=== PATIENT | male | born 1965 | race Caucasian/White ===

== ENCOUNTER 2020-03-20 11:20 | Outpatient (REF) | payer BC, OTHER, SELFPAY | END 2020-03-20 11:21 | disposition home or self-care (01) | LOC: HO.LNP 11:20 | PROVIDERS: Visit Provider Nurse Practitioner Family | DX: L02.91 Cutaneous abscess, unspecified (principal) | CPT/HCPCS: 87071; 87205 ==

== ENCOUNTER 2020-05-01 11:14 | Outpatient (REF) | payer BC, SELFPAY | END 2020-05-01 11:15 | disposition home or self-care (01) | LOC: HO.LAB 11:14 | PROVIDERS: Visit Provider Nurse Practitioner Family | DX: Z20.828 Contact with and (suspected) exposure to other viral communicable diseases (principal); R06.02 Shortness of breath | CPT/HCPCS: U0003 ==

== ENCOUNTER 2020-05-01 11:15 | Outpatient (REF) | payer BC, SELFPAY ==
--- NOTE | 2020-05-01 11:28 | XR_ITS ---
EXAMINATION: XR CHEST CLINICAL INFORMATION: Shortness of breath COMPARISON: Chest radiographs 09/21/2019 TECHNIQUE: 2 views of the chest were obtained. FINDINGS: The lungs are clear. There is no airspace consolidation or effusion. The vascularity is normal. The heart is normal in size. The hilar and mediastinal contours and bony structures are stable. XR/XR chest 2V IMPRESSION: Unremarkable examination.
== END 2020-05-01 11:16 | disposition home or self-care (01) ==
LOC: HO.HMGCX 11:15
PROVIDERS: PCP Nurse Practitioner Family; Visit Provider Nurse Practitioner Family
DX: R06.02 Shortness of breath (principal)
CPT/HCPCS: 71046; U0003

== ENCOUNTER 2020-05-22 09:04 | Outpatient (REF) | payer BC, SELFPAY ==
[2020-05-22 11:58] LABS: TSH reflex Free T4 1.79 mIU/mL (0.32-4.0)
[2020-05-22 12:01] LABS: Alanine Aminotransferase 53 U/L (0-40); Albumin Level 4.3 g/dL (3.5-5.0); Alkaline Phosphatase 98 U/L (39-117); Anion Gap 13 (12-20); Aspartate Amino Transferase 30 U/L (5-37); Bilirubin Total 1.9 mg/dL (0.0-1.0); Blood Urea Nitrogen 16 mg/dL (9-16); Carbon Dioxide 28 mmol/L (22-29); Chloride 103 mmol/L (96-108); Cholesterol 216 mg/dL; Estimated Glomerular Filt Rate > 60; Glucose Fasting 103 mg/dL (60-99); HDL Cholesterol 44 mg/dL; LDL Cholesterol Calculated 132 mg/dl; Sodium 140 mmol/L (135-145); Total Protein 6.9 g/dL (6.5-8.0); Triglycerides 202 mg/dL
[2020-05-22 12:29] LABS: Prostate Specific Antigen Scr 1.26 ng/mL (<0.05-4.0)
[2020-05-27 07:58] LABS: Testosterone, Total 301 ng/dL (250-1100)
== END 2020-05-22 09:05 | disposition home or self-care (01) ==
LOC: HO.HMGCLDS 09:04
PROVIDERS: PCP Nurse Practitioner Family; Visit Provider Nurse Practitioner Family
DX: Z00.00 Encounter for general adult medical examination without abnormal findings (principal); R68.82 Decreased libido; N52.9 Male erectile dysfunction, unspecified; Z12.5 Encounter for screening for malignant neoplasm of prostate
CPT/HCPCS: 80053; 80061; 84153; 84403; 84443

== ENCOUNTER 2021-09-27 09:40 | Outpatient (REF) | payer BC, SELFPAY ==
--- NOTE | ~2021-09-27 | XR_ITS ---
EXAMINATION: XR KNEE, LEFT CLINICAL INFORMATION: Left knee pain status post fall. COMPARISON: None TECHNIQUE: Four views of the left knee. FINDINGS: No significant tricompartmental degenerative joint changes are seen. There is no acute fracture or dislocation. No significant joint effusion. Mild prepatellar soft tissue swelling is seen. XR/XR knee LT 4V IMPRESSION: Mild prepatellar soft tissue swelling without acute underlying osseous abnormality. Correlate with physical exam.
== END 2021-09-27 09:41 | disposition home or self-care (01) ==
LOC: HO.HMGCX 09:40
PROVIDERS: PCP Nurse Practitioner Family; Visit Provider Physician Assistant
DX: M25.562 Pain in left knee (principal)
CPT/HCPCS: 73564

== ENCOUNTER 2022-05-05 15:26 | Outpatient (REF) | payer BC, SELFPAY ==
[2022-05-05 15:49] LABS: MANUAL DIFF FLAG NO
[2022-05-05 16:39] LABS: Basophils Percent Auto 0.6 % (0-2); Eosinophils Absolute Auto 0.3 X10*3/uL (0.0-0.4); Eosinophils Percent Auto 4.8 % (0-4); Hematocrit 45.3 % (42.0-52.0); Hemoglobin 15.3 g/dl (14.0-18.0); Imm Gran Abs Auto 0.03 X10*3/uL (0.00-0.03); Imm Gran Pct Auto 0.5 % (0.0-0.4); Lymphocytes Absolute Auto 1.3 X10*3/uL (1.2-4.9); Lymphocytes Percent Auto 19.7 % (20-40); Mean Corpuscular HGB Conc 33.8 g/dl (31.0-36.0); Mean Corpuscular Hemoglobin 29.9 pg (27.0-33.0); Mean Corpuscular Volume 88.6 fL (80.0-98.0); Monocytes Absolute Auto 0.6 X10*3/uL (0.1-1.2); Monocytes Percent Auto 8.9 % (2-11); Neutrophils Absolute Auto 4.4 x10*3/uL (2.0-8.3); Neutrophils Percent Auto 65.5 % (45-73); Platelet Count 171 X10*3/uL (160-400); Red Blood Count 5.11 X10*6/uL (4.60-5.80); Red Cell Distribution Width 12.5 % (11.0-16.0); White Blood Count 6.7 X10*3/uL (4.8-10.8)
[2022-05-05 19:26] LABS: Alanine Aminotransferase 31 U/L (0-40); Albumin Level 4.3 g/dL (3.5-5.0); Alkaline Phosphatase 91 U/L (39-117); Anion Gap 12 (12-20); Aspartate Amino Transferase 21 U/L (5-37); Bilirubin Total 1.4 mg/dL (0.0-1.0); Blood Urea Nitrogen 15 mg/dL (9-16); Calcium 9.6 mg/dL (8.4-10.2); Carbon Dioxide 29 mmol/L (22-29); Chloride 105 mmol/L (96-108); Estimated Glomerular Filt Rate > 60; Glucose Random 107 mg/dL (60-115); Potassium 4.4 mmol/L (3.3-5.1); Sodium 142 mmol/L (135-145); Total Protein 6.8 g/dL (6.5-8.0)
== END 2022-05-05 15:27 | disposition home or self-care (01) ==
LOC: HO.LAB 15:26
PROVIDERS: PCP Nurse Practitioner Family; Visit Provider Nurse Practitioner
DX: Z01.818 Encounter for other preprocedural examination (principal)
CPT/HCPCS: 36415; 80053; 85025

== ENCOUNTER 2022-05-15 08:13 | Outpatient (REF) | payer BC, SELFPAY | END 2022-05-15 08:14 | disposition home or self-care (01) | LOC: HO.SH 08:13 | PROVIDERS: Visit Provider Nurse Practitioner Family | DX: H90.3 Sensorineural hearing loss, bilateral (principal) | CPT/HCPCS: 92557; 92567 ==

== ENCOUNTER 2022-06-03 08:07 | Outpatient (REF) | payer BC, SELFPAY ==
[2022-06-03 11:11] LABS: MANUAL DIFF FLAG NO
[2022-06-03 11:17] LABS: Appearance Urine Cloudy; Color Urine Yellow; Glucose Urine UA Negative (Negative); Leukocyte Esterase Urine Negative (Negative); Nitrite Urine Negative (Negative); PH 5.5 (5.0-9.0); Urine Blood Negative (Negative); Urine Ketones Negative (Negative); Urine Protein Trace mg/dL (Neg-Trace)
[2022-06-03 11:27] LABS: Basophils Percent Auto 0.6 % (0-2); Eosinophils Absolute Auto 0.4 X10*3/uL (0.0-0.4); Eosinophils Percent Auto 7.2 % (0-4); Hematocrit 46.8 % (42.0-52.0); Hemoglobin 15.7 g/dl (14.0-18.0); Imm Gran Abs Auto 0.05 X10*3/uL (0.00-0.03); Lymphocytes Absolute Auto 1.1 X10*3/uL (1.2-4.9); Lymphocytes Percent Auto 22.2 % (20-40); Mean Corpuscular HGB Conc 33.5 g/dl (31.0-36.0); Mean Corpuscular Hemoglobin 29.6 pg (27.0-33.0); Mean Corpuscular Volume 88.3 fL (80.0-98.0); Mean Platelet Volume 9.8 fL (9.4-12.4); Monocytes Absolute Auto 0.5 X10*3/uL (0.1-1.2); Monocytes Percent Auto 9.7 % (2-11); Neutrophils Absolute Auto 2.9 x10*3/uL (2.0-8.3); Neutrophils Percent Auto 59.3 % (45-73); Platelet Count 175 X10*3/uL (160-400); Red Cell Distribution Width 12.6 % (11.0-16.0); White Blood Count 4.9 X10*3/uL (4.8-10.8)
[2022-06-03 11:58] LABS: Alanine Aminotransferase 32 U/L (0-40); Albumin Level 4.2 g/dL (3.5-5.0); Alkaline Phosphatase 89 U/L (39-117); Anion Gap 10 (12-20); Aspartate Amino Transferase 19 U/L (5-37); Bilirubin Total 1.4 mg/dL (0.0-1.0); Blood Urea Nitrogen 20 mg/dL (9-16); Calcium 9.8 mg/dL (8.4-10.2); Carbon Dioxide 29 mmol/L (22-29); Chloride 106 mmol/L (96-108); Cholesterol 196 mg/dL; Estimated Glomerular Filt Rate > 60; Glucose Fasting 106 mg/dL (60-99); HDL Cholesterol 36 mg/dL; LDL Cholesterol Calculated 110 mg/dl; Potassium 4.6 mmol/L (3.3-5.1); Sodium 140 mmol/L (135-145); Total Protein 6.7 g/dL (6.5-8.0); Triglycerides 251 mg/dL
== END 2022-06-03 08:08 | disposition home or self-care (01) ==
LOC: HO.HMGCLDS 08:07
PROVIDERS: PCP Nurse Practitioner Family; Visit Provider Nurse Practitioner Family
DX: Z00.00 Encounter for general adult medical examination without abnormal findings (principal); Z12.5 Encounter for screening for malignant neoplasm of prostate
CPT/HCPCS: 36415; 80053; 80061; 81003; 84153; 84443; 85025

== ENCOUNTER 2022-07-15 09:16 | Outpatient (REF) | payer BC, SELFPAY ==
--- NOTE | ~2022-07-15 | XR_ITS ---
EXAMINATION: XR CHEST CLINICAL INFORMATION: Bronchitis COMPARISON: 05/01/2020 TECHNIQUE: 2 views of the chest were obtained. FINDINGS: No significant abnormality is noted involving the heart, lungs, mediastinum, bony thorax or soft tissues. XR/XR chest 2V IMPRESSION: Unremarkable examination.
== END 2022-07-15 09:17 | disposition home or self-care (01) ==
LOC: HO.HMGCX 09:16
PROVIDERS: Visit Provider Internal Medicine
DX: J40 Bronchitis, not specified as acute or chronic (principal)
CPT/HCPCS: 71046

== ENCOUNTER 2023-01-01 11:06 | Day surgery (SDC) | payer BC, SELFPAY ==
[2022-12-30 07:59] VITALS: BMI 31.4
--- NOTE | 2023-01-01 11:13 | HO.ANESPROP2 ---
[facility] Active Problems Active Problems: All Active Problems (Updated 07/30/22 @ 09:18 by Dia Preciado MD) Exacerbation of asthma (Acute) Bronchitis (Acute) Sarcoidosis (Acute) High triglycerides (Acute) Sensorineural hearing loss, asymmetrical (Acute) Family history of colon cancer (Acute) Tubular adenoma of colon (Acute) VALENTINE (obstructive sleep apnea) (Acute) Pre-op examination (Acute) History of diverticulitis (Acute) Ocular migraine (Acute) Screening for colon cancer (Acute) Black tarry stools (Acute) Back pain (Acute) Elevated liver enzymes (Acute) Dyslipidemia (Acute) HTN (hypertension) (Acute) Loss of libido (Acute) Erectile dysfunction (Acute) Hearing loss (Acute) Screening PSA (prostate specific antigen) (Acute) Physical exam (Acute) Shortness of breath (Acute) Blister (Acute) Past Medical History Medical History Diverticulitis GERD (gastroesophageal reflux disease) Gilbert's syndrome Hearing loss VALENTINE (obstructive sleep apnea) Sarcoidosis Villous adenoma of rectum Family History Family History Father Colon cancer Family history of problems with anesthesia: No Surgical History Surgical History H/O colonoscopy History of colon resection S/P tendon repair History of Problems with Anesthesia: No Social History Social History Housing: House Are you a primary childcare teacher to a significant other at home: No Do you presently have visiting nurse or other home services: No Alcohol intake: current Alcohol intake frequency: a few times a month Patient Tobacco Use Status: Never used Tobacco e-Cigarette/Vaping Use: Never Used Second Hand Smoke Exposure: No Use of substances other than those prescribed or required for medical reasons: No Advance Directives: No Advance Directives Information Provided: Yes Recently lost weight without trying: No Eating poorly because of decreased appetite: No Nutrition Risks: No Nutritional Risk Poor oral hygiene: No service: No Current occupational status: employed Current occupation: [employer] Current occupational exposures/hazards: Yes Cognitive needs: No Hearing needs: No Vision needs: No Meds Allergies Allergy/AdvReac Type Severity Reaction Status Date / Time morphine Allergy Unknown stomach Verified 01/01/23 11:15 pain and cramping penicillin V Allergy Unknown hives Verified 01/01/23 11:15 Penicillins Allergy Unknown UNKNOWN-REACTION Verified 01/01/23 11:15 A CHILD hydromorphone [Dilaudid] AdvReac Unknown migranies Verified 01/01/23 11:15 Active Medications: Current Medications Albuterol Sulfate (Albuterol Sulfate (0.083%) 2.5 Mg/3 Ml Vial.Neb) 2.5 mg INHALE ONCE PRN PRN Reason: Shortness of Breath/Wheezing Lactated Ringer's (Lr) 1,000 mls @ 100 mls/hr IVCONT .Q10H CINDY Exam Exam Date and Time: January 01, 2023 1113 Height,Weight and Vital Signs: Height 6 ft 5 in Weight 120.202 kg Airway Mallampati Class: III (couple broken) TM Dist: >3cm Neck ROM: Full Heart: rrr Lungs: cta Assessment and Plan Assessment Anesthesia Assessment: Anesthesia Plan Discussed and Chart Reviewed Final Anesthetic Review Family History of Problems with Anesthesia: No History of Problems with Anesthesia: No NPO: Yes ASA Class: III Final Preanesthetic Review: No Changes in Pt Med Stat, Meds/Allgs Chart Reviewed and Consent Obtained/Reviewed Patient Risk: Intermediate Procedure Risk: Intermediate Anesthetic Plan Anesthetic Plan: MAC: Disposition: Standard PACU
[2023-01-01] MEDS: Lactated Ringers 1,000 ML 100 ML IVCONT (11:24)
[2023-01-01 11:26] VITALS: PULSE 75; RESP 18; TEMP 36.6; O2SAT 97
--- NOTE | 2023-01-01 11:56 | P.HPSUR_ITS ---
Pre-Procedural Eval Section A Date of Service: 01/01/23 The patient is an INPATIENT: No The History & Physical has been completed within 30 days and I have reviewed it.: No Section B Chief Complaint: screening, hx of colon polyps Relevant Family History (Specify if Yes): Yes Relevant Social History: None Present Medications: see Short Stay Collaborative assessment Medical History: Significant History (Diverticulitis GERD (gastroesophageal reflux disease) Gilbert's syndrome Hearing loss VALENTINE (obstructive sleep apnea) Sarcoidosis Villous adenoma of rectum) History of Previous Operations: Relevant previous surgery/procedure and date(s) (Repair right wrist fracture repair Colon resection relates diverticulitis- 2014 Colonoscopy-2016,) Allergies: Allergies Allergy/AdvReac Type Severity Reaction Status Date / Time morphine Allergy Unknown stomach Verified 01/01/23 11:15 pain and cramping penicillin V Allergy Unknown hives Verified 01/01/23 11:15 Penicillins Allergy Unknown UNKNOWN-REACTION Verified 01/01/23 11:15 A CHILD hydromorphone [Dilaudid] AdvReac Unknown migranies Verified 01/01/23 11:15 Review of Systems Sugical H&P ROS: Negative: Constitution, Cardiovascular, Respiratory and Gastrointestinal Exam Surgical H&P Exam: Normal: Heart, Normal: Lungs, Normal: Extremities and Normal: Abdomen Plan Diagnosis/Plan: Unchanged I have reviewed the history and physical and performed a pertinent physical examination on my patient. No changes have occurred unless specified. Time Spent With Patient Time: Total time managing care of this patient today ____ minutes.
--- NOTE | 2023-01-01 12:02 | W.PM.OPN ---
Operative Note Operative Note Date of Service: 01/01/23 Narrative: COLONOSCOPY TILL CECUM WITH SNARE POLYPECTOMY AND SUBMUCOSAL INJECTION Pre-op diagnosis: Colon cancer screening, history of colon polyps, history of transanal resection for villous adenoma of the rectum, history of colon resection for diverticulitis. Post-op diagnosis:? Colon polyps, diverticulosis, hemorrhoids Endoscopist:? Lisset Heredia MD Anesthesia:?MAC Consent: Indications for the procedure and potential complications of bleeding, perforation, reaction to medications and missed diagnosis were discussed with the patient and informed consent was obtained. Instrument: Olympus CF H 190 L variable stiffness adult colonoscope Monitoring: Vital signs and clinical assessment, intermittent blood pressure monitoring, continuous EKG monitoring, Pulse oximetry and Carbon Dioxide monitoring were done throughout the procedure. Please see anesthesia flowsheet. Colon withdrawl time was 41 minutes. Procedure: The patient was placed in the left lateral decubitis position and pre-procedure medications were administered. After a digital rectal examination of the ano-rectum, the video colonoscope was inserted into the rectum and advanced through the colon to the cecum. The colonoscope was slowly withdrawn in a retrograde panoramic fashion and the colon mucosa was carefully examined including a retroflexed view of the rectum. Findings and interventions are described below. Procedure Difficulty: Without difficulty Findings: Terminal Ileum: Not evaluated Cecum: Normal Ascending Colon: A 9-10 mm sessile polyp removed with a hot snare Transverse Colon: A 10-12 mm sessile polyp in the proximal TC - removed with a hot snare. An 18 to 20 mm sessile polyp in the TC at 80 cms - removed with a hot stiff snare and polypectomy site marked by vicki ink. Descending Colon: A 2 to 2.5 cms flat polyp at 60 cms. Polyp was raised with 5 cc of normal saline and removed with a hot stiff snare. Polypectomy site was marked by Vicki ink. Moderate diverticulosis. Sigmoid Colon: Moderate diverticulosis Rectum: Anastomosis seen at 10-12 cms with a 12-15 mm polyp - removed with a hot snare. Ano-rectum: Moderate internal hemorrhoids Colon preparation: Good Impression and Post Procedure Diagnosis: Colonoscopy Findings: Five medium to large sized polyps removed Moderate diverticulosis seen in the left colon Moderate hemorrhoids on retroflexed exam. Plan: Await pathology results Patient has an appointment on 01/15/23 in the [facility] with Amy Elizondo NP. Repeat Colonoscopy interval based on path results - in 1-2 years if polyps are adenomatous and to check polypectomy sites in the transverse and descending colon. Colon polyps and diverticulosis handouts were given in the discharge area BIOPSIES: A. ascending colon polyp: Fragments of tubular adenoma; negative for high-grade dysplasia or carcinoma. ?B. transverse colon polyp Fragments of tubular adenoma; negative for high-grade dysplasia or carcinoma. ? C. transverse colon polyp @ 80 cms: Fragments of tubular adenoma; negative for high-grade dysplasia or carcinoma. ?D. descending colon polyp @ 60 cms: Hyperplastic mucosal polyp. ?E. rectal polyp: Hyperplastic mucosal polyp. Letter sent with biopsy results
--- NOTE | 2023-01-01 12:10 | HO.ANESPROP2 ---
[facility] Active Problems Active Problems: All Active Problems (Updated 07/30/22 @ 09:18 by Dia Preciado MD) Exacerbation of asthma (Acute) Bronchitis (Acute) Sarcoidosis (Acute) High triglycerides (Acute) Sensorineural hearing loss, asymmetrical (Acute) Family history of colon cancer (Acute) Tubular adenoma of colon (Acute) VALENTINE (obstructive sleep apnea) (Acute) Pre-op examination (Acute) History of diverticulitis (Acute) Ocular migraine (Acute) Screening for colon cancer (Acute) Black tarry stools (Acute) Back pain (Acute) Elevated liver enzymes (Acute) Dyslipidemia (Acute) HTN (hypertension) (Acute) Loss of libido (Acute) Erectile dysfunction (Acute) Hearing loss (Acute) Screening PSA (prostate specific antigen) (Acute) Physical exam (Acute) Shortness of breath (Acute) Blister (Acute) Past Medical History Medical History Diverticulitis GERD (gastroesophageal reflux disease) Gilbert's syndrome Hearing loss VALENTINE (obstructive sleep apnea) Sarcoidosis Villous adenoma of rectum Family History Family History Father Colon cancer Family history of problems with anesthesia: No Surgical History Surgical History H/O colonoscopy History of colon resection S/P tendon repair History of Problems with Anesthesia: No Social History Social History Housing: House Are you a primary client care coordinator to a significant other at home: No Do you presently have visiting nurse or other home services: No Alcohol intake: current Alcohol intake frequency: a few times a month Patient Tobacco Use Status: Never used Tobacco e-Cigarette/Vaping Use: Never Used Second Hand Smoke Exposure: No Use of substances other than those prescribed or required for medical reasons: No Advance Directives: No Advance Directives Information Provided: Yes Recently lost weight without trying: No Eating poorly because of decreased appetite: No Nutrition Risks: No Nutritional Risk Poor oral hygiene: No service: No Current occupational status: employed Current occupation: [employer] Current occupational exposures/hazards: Yes Cognitive needs: No Hearing needs: No Vision needs: No Meds Allergies Allergy/AdvReac Type Severity Reaction Status Date / Time morphine Allergy Unknown stomach Verified 01/01/23 11:15 pain and cramping penicillin V Allergy Unknown hives Verified 01/01/23 11:15 Penicillins Allergy Unknown UNKNOWN-REACTION Verified 01/01/23 11:15 A CHILD hydromorphone [Dilaudid] AdvReac Unknown migranies Verified 01/01/23 11:15 Active Medications: Current Medications Albuterol Sulfate (Albuterol Sulfate (0.083%) 2.5 Mg/3 Ml Vial.Neb) 2.5 mg INHALE ONCE PRN PRN Reason: Shortness of Breath/Wheezing Lactated Ringer's (Lr) 1,000 mls @ 100 mls/hr IVCONT .Q10H CINDY Last Admin: 01/01/23 11:24 Dose: 100 mls/hr Exam Exam Date and Time: January 01, 2023 1210 Height,Weight and Vital Signs: Height 6 ft 5 in Weight 120.202 kg Last Vital Signs Temp 97.9 F 01/01/23 11:26 Pulse 75 01/01/23 11:26 Resp 18 01/01/23 11:26 Pulse Ox 97 01/01/23 11:26 O2 Del Method Room Air 01/01/23 11:26 Airway Mallampati Class: IV TM Dist: >3cm Neck ROM: Full Loose/Missing/Broken Teeth: No Heart: rrrr Lungs: clear Assessment and Plan Final Anesthetic Review Family History of Problems with Anesthesia: No History of Problems with Anesthesia: No NPO: Yes ASA Class: III Final Preanesthetic Review: No Changes in Pt Med Stat, Consent Obtained/Reviewed and Anes Risks/Benef Reviewed Patient Risk: Intermediate Procedure Risk: Low Anesthetic Plan Anesthetic Plan: MAC: Disposition: Standard PACU
[2023-01-01 13:20] VITALS: BP 134/77; PULSE 70; RESP 24; TEMP 36.2; O2SAT 96
[2023-01-01 13:35] VITALS: BP 167/107; PULSE 62; RESP 16; O2SAT 96
[2023-01-01 13:43] VITALS: BP 178/100; PULSE 63; RESP 16; TEMP 36.6; O2SAT 96
== END 2023-01-01 14:47 | disposition home or self-care (01) ==
PROVIDERS: PCP Nurse Practitioner Family; Visit Provider Internal Medicine Gastroenterology
PROC: 0DJD8ZZ Inspection of Lower Intestinal Tract, Via Natural or Artificial Opening Endoscopic (ICD-10-PCS; CPT 45378; principal; 2023-01-01 12:50)
DX: Z12.11 Encounter for screening for malignant neoplasm of colon (principal); Z86.010 Personal history of colon polyps; Z80.0 Family history of malignant neoplasm of digestive organs; D12.2 Benign neoplasm of ascending colon; D12.3 Benign neoplasm of transverse colon; K63.5 Polyp of colon; K62.1 Rectal polyp; K57.30 Diverticulosis of large intestine without perforation or abscess without bleeding; K64.8 Other hemorrhoids; Z90.49 Acquired absence of other specified parts of digestive tract; Z98.0 Intestinal bypass and anastomosis status; Z87.19 Personal history of other diseases of the digestive system; K21.9 Gastro-esophageal reflux disease without esophagitis; D86.9 Sarcoidosis, unspecified; E80.4 Gilbert syndrome; I10 Essential (primary) hypertension; G47.33 Obstructive sleep apnea (adult) (pediatric); Z88.0 Allergy status to penicillin; Z88.8 Allergy status to other drugs, medicaments and biological substances; Z79.899 Other long term (current) drug therapy
CPT/HCPCS: 45385; 45381; 88305

== ENCOUNTER → 2023-01-01 11:06 | Outpatient (BNV) | payer BC, SELFPAY | PROVIDERS: PCP Nurse Practitioner Family; Visit Provider Internal Medicine Gastroenterology | DX: Z12.11 Encounter for screening for malignant neoplasm of colon (principal); Z86.010 Personal history of colon polyps; Z85.048 Personal history of other malignant neoplasm of rectum, rectosigmoid junction, and anus; K57.30 Diverticulosis of large intestine without perforation or abscess without bleeding; K64.8 Other hemorrhoids; D12.2 Benign neoplasm of ascending colon; D12.3 Benign neoplasm of transverse colon; D12.4 Benign neoplasm of descending colon; D12.8 Benign neoplasm of rectum | CPT/HCPCS: 45381; 45385 ==

== ENCOUNTER 2023-01-07 07:55 | Outpatient (AMB) | payer BC, SELFPAY ==
--- NOTE | 2023-01-07 07:59 | MHC.OFFVIS ---
Intake Vital Signs 01/07/23 08:05 Height 6 ft 5 in Weight 258 lb 6 oz BMI 30.6 BP 138/80 Blood Pressure Location Lt brachial Position Sitting Pulse 63 Pulse Source Pulse Oximeter Pulse Oximetry (%) 99 Oxygen Delivery Method Room Air Intake Visit Reasons: I-WAITER/WAITRESS COUNTER: VALENTINE - Confirmed Intake Note: NPV for VALENTINE Pictures Editor Required: No Allergies morphine Allergy (Unknown, Verified 01/07/23 08:02) stomach pain and cramping penicillin V Allergy (Unknown, Verified 01/07/23 08:02) hives Penicillins Allergy (Unknown, Verified 01/07/23 08:02) UNKNOWN-REACTION A CHILD hydromorphone [Dilaudid] Adverse Reaction (Unknown, Verified 01/07/23 08:02) migranies HPI HPI Comments History of Present Illness Details 57 y/o male patient presents for new in-person visit to manage sleep apnea. He is transferring care. Pt reports that he was diagnosed with VALENTINE 15-20 years ago, and has been using CPAP since then. He had a repeat sleep study 10 years ago and had a new CPAP then. He sleep well with CPAP, 6-8 hours. He states that he can't sleep without CPAP. However, his CPAP does not work properly, but still use every night. He also has not received supplies for a long time. He thinks that he gained about 50 lb since the last sleep study. Denies difficulty initiating sleep or staying sleep. Sleep questionnaire: Have you ever been diagnosed with a sleep disorder? VALENTINE. Have you ever had a sleep study in the past? Yes. Have you ever been treated for a sleep disorder? CPAP Do you take medications for a sleep disorder? No. Do you snore? Not with CPAP. Do you wake up gasping at night? Not with CPAP. Do you have episodes of apneas? No. If yes, are they witnessed? No. Do you have episodes of nocturnal chest pain or dyspnea? No. Do you have difficulty initiating sleep? No. Do you have difficulty maintaining sleep? No. Do you wake up tired? No. Do you have headaches upon awakening? No. Do you wake up with dry mouth or throat? No. Do you have GERD? Yes. Do you have nocturia? No. Do you have nocturnal leg cramps? No. Do you have symptoms of restless legs? No. Do you act out your dreams? No. Sleep hygiene questionnaire: What is your usual sleep routine? Usual bedtime is at 9-10 pm ; Usual wake up time is at 5 am. Do you take naps? No. Is your sleep environment cool, dark, and quiet? Yes. Do you exercise? No. Do you take caffeine or other stimulants? Two cups of coffee in the morning. Do you use electronics in bed? Yes. What is your work schedule? 7 am to 3 :30 pm Hypersomnolence questionnaire: Do you have daytime tiredness or fatigue? No. Do you easily fall asleep when inactive? No. Have you ever had episodes of sudden weakness? No. Have you ever had episodes of sudden weakness associated with strong emotions? No. PFSH Medical History Diverticulitis GERD (gastroesophageal reflux disease) Gilbert's syndrome Hearing loss VALENTINE (obstructive sleep apnea) Sarcoidosis Villous adenoma of rectum Surgical History H/O colonoscopy History of colon resection S/P tendon repair Family History Father Colon cancer Social History (Updated 01/07/23 @ 08:05 by Maegan Guzman CMA) Housing: House Are you a primary acute care certified nursing assistant to a significant other at home: No Do you presently have visiting nurse or other home services: No Alcohol intake: current Alcohol intake frequency: a few times a month Patient Tobacco Use Status: Never used Tobacco e-Cigarette/Vaping Use: Never Used Second Hand Smoke Exposure: No service: No Current occupational status: employed Current occupation: [employer] Current occupational exposures/hazards: Yes Cognitive needs: No Hearing needs: No Vision needs: No Review of Systems Const All systems reviewed & are unremarkable except as noted in HPI and below Physical Exam Vital Signs: Last Vital Signs Pulse 63 01/07/23 08:05 BP 138/80 01/07/23 08:05 Pulse Ox 99 01/07/23 08:05 Oxygen Delivery Method Room Air 01/07/23 08:05 BMI result Body Mass Index 30.6 Const General: cooperative and healthy appearing Nutritional Appearance: overweight Orientation/consciousness: patient oriented x3 Neck Neck: Yes full ROM and Yes supple Resp Effort & Inspection: normal respiratory effort and able to speak in complete sentences Neuro General: patient oriented x3, gait normal and moves all extremities Cranial nerves: Yes Bilaterally intact EOM present, Yes Normal facial strength present, Yes Midline tongue present, Yes Symmetric palate elevation present, Yes Ability to bilaterally rotate head present and Yes Ability to bilaterally elevate shoulders present Cognition (Neuro): normal cognition Gait exam (Neuro): Normal gait present Motor exam (neuro): 5/5 motor strength present throughout, Pronator motor function not present and no tremor noted Psych Appearance: grossly normal Mental Status: mental status grossly normal Speech and movement: Normal speech and movement present Affect: normal affect Attitude: cooperative Assessment & Plan Assessment & Plan (1) VALENTINE (obstructive sleep apnea): Code(s): G47.33 - Obstructive sleep apnea (adult) (pediatric) Plan Pt is advised to undergo home sleep study to assess for sleep apnea. Will f/u with pt after study to discuss results and appropriate treatment options. Continue to use current CPAP. Stressed compliance, use CPAP nightly and more than 4 hours. Pt to call with any worsening concerns or questions. Orders: Orders RT home sleep study Today G47.33 - Obstructive sleep apnea (adult) (pediatric), I10 - Essential (primary) hypertension Coding Level of Care Code New Pt Level 3 (33040) Diagnoses VALENTINE (obstructive sleep apnea) G47.33
[2023-01-07 08:05] VITALS: BP 138/80; PULSE 63; O2SAT 99; BMI 30.6
== END 2023-01-07 08:33 | disposition home or self-care (01) ==
PROVIDERS: PCP Nurse Practitioner Family; Visit Provider Nurse Practitioner Family
DX: G47.33 Obstructive sleep apnea (adult) (pediatric) (principal)
CPT/HCPCS: 99203

== ENCOUNTER → 2023-01-07 07:55 | Outpatient (BNVA) | payer BC, SELFPAY | PROVIDERS: PCP Nurse Practitioner Family; Visit Provider Nurse Practitioner Family ==

== ENCOUNTER 2023-01-25 08:07 | Outpatient (AMB) | payer BC, SELFPAY ==
[2023-01-25 08:34] VITALS: BP 132/82; PULSE 60; O2SAT 99; BMI 31.2
--- NOTE | 2023-01-25 08:34 | MHC.OFFWIV ---
Intake Vital Signs 01/25/23 08:34 Height 6 ft 5 in Weight 119.295 kg BMI 31.2 BP 132/82 Blood Pressure Location Rt brachial Position Sitting Pulse 60 Pulse Source Pulse Oximeter Pulse Oximetry (%) 99 Oxygen Delivery Method Room Air Intake Visit Reasons: EP LT Elbow concern Intake Note: Pt is here for lump on LT elbow, pt states he woke up wednesday morning and noticed it. Patient Tobacco Use Status: Never used Tobacco Allergies morphine Allergy (Unknown, Verified 01/25/23 08:36) stomach pain and cramping penicillin V Allergy (Unknown, Verified 01/25/23 08:36) hives Penicillins Allergy (Unknown, Verified 01/25/23 08:36) UNKNOWN-REACTION A CHILD hydromorphone [Dilaudid] Adverse Reaction (Unknown, Verified 01/25/23 08:36) migranies Do you need a note to return to daycare/school/sports/work: No HPI HPI Comments History of Present Illness Details 09 57-year-old male presents with painless bump on left elbow has been present since Wednesday, denies trauma to the area, fevers, chills, numbness, tingling. He has had this on his other elbow, it was drained once by the orthopedic surgeon. Has not happened to him in a while. Physical exam significant for left-sided olecranon bursitis without overlying erythema, warmth. Full range of motion to bilateral elbows. 2+ radial pulses equal bilateral. No wrist drop History and physical exam concerning for olecranon bursitis. Unlikely abscess, septic joint Plan at this time naproxen, prednisone and orthopedic consult. Educated patient on diagnosis and treatment plan, answered all question, patient verbalizes understanding. At this time patient will be discharged home, advised to return with new or worsening symptoms. Educated on worrisome signs and symptoms and when to return. At this time I feel comfortable discharge home. [facility], [facility] Medical History Diverticulitis GERD (gastroesophageal reflux disease) Gilbert's syndrome Hearing loss VALENTINE (obstructive sleep apnea) Sarcoidosis Villous adenoma of rectum Surgical History H/O colonoscopy History of colon resection S/P tendon repair Family History Father Colon cancer Social History Housing: House Are you a primary healthcare administrative assistant to a significant other at home: No Do you presently have visiting nurse or other home services: No Alcohol intake: current Alcohol intake frequency: a few times a month Patient Tobacco Use Status: Never used Tobacco e-Cigarette/Vaping Use: Never Used Second Hand Smoke Exposure: No service: No Current occupational status: employed Current occupation: [employer] Current occupational exposures/hazards: Yes Cognitive needs: No Hearing needs: No Vision needs: No Review of Systems Const Details: Constitutional : No Weight loss, No Fever, No Chills, No Fatigue, No Malaise ENT/Mouth : No sore throat, No Rhinorrhea Eyes: No Eye Pain, No Swelling, No Redness Cardiovascular : No Chest Pain, No SOB, No Dyspnea on Exertion, No Orthopnea, No Edema, No Palpitations Respiratory : No Cough, No Sputum, No Wheezing Gastrointestinal : No Nausea, No Vomiting, No Diarrhea, No Constipation, No abdominal Pain, No Hematochezia, No Melena Genitourinary : No Dysuria, No Urinary Frequency, No Hematuria, Musculoskeletal : No joint pain, No Myalgias, + Joint Swelling Skin : No Skin Lesions, No rash Neuro : No Weakness, No Numbness, No Dizziness, No Headache Psych : No Anxiety/Panic, No Depression All other systems reviewed and are negative All systems reviewed & are unremarkable except as noted in HPI and below Physical Exam Vital Signs: Last Vital Signs Pulse 60 01/25/23 08:34 BP 132/82 01/25/23 08:34 Pulse Ox 99 01/25/23 08:34 Oxygen Delivery Method Room Air 01/25/23 08:34 BMI result Body Mass Index 31.2 Vital signs stable Appearance: Alert.? Oriented X3.? No acute distress.? Head: Normocephalic, atraumatic, no step-offs or deformities Eyes: Pupils equal, round and reactive to light.? CVS: Normal heart rate and rhythm.? Pulses normal.? Respiratory: No respiratory distress.? Breath sounds normal.? Abdomen: Soft and nontender.? Skin: Skin warm and dry.? Normal skin color.? Normal skin turgor.? Extremities: No lower extremity edema.? No calf ttp. 5/5 strength to bilateral upper and lower extremities + left-sided olecranon bursitis without overlying erythema, warmth. Full range of motion to bilateral elbows. 2+ radial pulses equal bilateral. No wrist drop Neuro: Oriented X 3.? No motor deficit.? No sensory deficit. CN 2-12 intact Assessment & Plan Assessment & Plan (1) Olecranon bursitis: Code(s): M70.20 - Olecranon bursitis, unspecified elbow Plan Take your medications as prescribed. If you were prescribed antibiotics today, it is important that you take your medication to their entirety, do not skip any doses, do not finish them early. Follow-up with your primary care provider this week. Return to the emergency department with new or worsening symptoms. Such as fevers, chills, chest pain, shortness of breath, nausea, vomiting, dizziness, headache, vision changes, lethargy In case of emergency call 911 Orders: Referrals Orthopedics Referral M70.20 - Olecranon bursitis, unspecified elbow Medications: New prednisone 60 mg (3 x 20 mg) PO DAILY 15 tabs 0RF 5 days naproxen 500 mg PO BID PRN 14 tabs 0RF pain Coding Level of Care Code Est Pt Level 3 (15962) Diagnoses Olecranon bursitis M70.20
== END 2023-01-25 10:21 | disposition home or self-care (01) ==
PROVIDERS: PCP Nurse Practitioner Family; Visit Provider Physician Assistant
DX: M70.20 Olecranon bursitis, unspecified elbow (principal)
CPT/HCPCS: 99213

== ENCOUNTER 2023-01-27 11:50 | Outpatient (AMB) | payer BC, SELFPAY ==
--- NOTE | 2023-01-27 11:52 | A.OFFVIS_ITS ---
Intake Vital Signs 01/27/23 11:58 Height 6 ft 5 in Weight 255 lb 4.725 oz BMI 30.3 BP 137/78 Blood Pressure Location Rt brachial Position Sitting Pulse 71 Intake Visit Reasons: follow up Intake Note: Patient presents to in office visit today in post op visit s/p colonoscopy. Pt underwent colonoscopy w/Dr. Heredia on 01/01/23. Reports doing well and denies having any GI concerns today. Allergies morphine Allergy (Unknown, Verified 01/25/23 08:36) stomach pain and cramping penicillin V Allergy (Unknown, Verified 01/25/23 08:36) hives Penicillins Allergy (Unknown, Verified 01/25/23 08:36) UNKNOWN-REACTION A CHILD hydromorphone [Dilaudid] Adverse Reaction (Unknown, Verified 01/25/23 08:36) migranies HPI follow up HPI Details Assessment & Plan (1) Pre-op examination: ?Code(s): Z01.818 - Encounter for other preprocedural examination ?Plan: He has had 2 prior scopes and he says he had a hx of polyps, his last scope was in 2017 He tolerated the past procedure well. There are no prior problems with anesthesia or sedation. He has VALENTINE and no cardiac problems. No ID problems. He had TA's in the past and his father had CRC. (2) VALENTINE (obstructive sleep apnea): ?Code(s): G47.33 - Obstructive sleep apnea (adult) (pediatric) (3) Tubular adenoma of colon: ?Comment: On 2017 scope performed at [facility] ?Code(s): D12.6 - Benign neoplasm of colon, unspecified (4) Family history of colon cancer: ?Comment: Father ?Code(s): Z80.0 - Family history of malignant neoplasm of digestive organs ? ? ? Orders: Orders Comprehensive Met. Panel Today Z01.818 - Encounte r for other prepro cedural examinatio n ? Complete Blood Cou nt Auto Diff Today Z01.818 - Encounte r for other prepro cedural examinatio n ? Medications: New peg 3350-electroly sunil 236-22.74-6.74 -5.86 gram (Golyt scooter) ?? until feca l effluent is jorge r; do not exceed a total volume of 2 ,000 mL 240 mL? PO Q10M 1 day 4,000 mL 0RF Z12.11 - Encounter for screening for malignant neoplas m of colon Labs: Laboratory Tests 06/03/22 06/03/22 08:16 08:16 WBC 4.9 Hgb 15.7 Hct 46.8 Estimated GFR > 60 Total Bilirubin 1.4 H AST 19 ALT 32 Alkaline Phosphata se 89 TSH 2.60 COLONOSCOPY 01/01/23 Findings: Terminal Ileum: Not evaluated Cecum:? Normal Ascending Colon:? A 9-10 mm sessile polyp removed with a hot snare Transverse Colon:? A 10-12 mm sessile polyp in the proximal TC - removed with a hot snare. An 18 to 20 mm sessile polyp in the TC at 80 cms - removed with a hot stiff snare and polypectomy site marked by vicki ink. Descending Colon:? A 2 to 2.5 cms flat polyp at 60 cms.? Polyp was raised with 5 cc of normal saline and removed with a hot stiff snare.? Polypectomy site was marked by Vicki ink. Moderate diverticulosis. Sigmoid Colon:? Moderate diverticulosis Rectum:? Anastomosis seen at 10-12 cms with a 12-15 mm polyp - removed with a hot snare. Ano-rectum:? Moderate internal hemorrhoids Colon preparation:? Good? Impression and Post Procedure Diagnosis: Colonoscopy Findings: Five medium to large sized polyps removed Moderate diverticulosis seen in the left colon Moderate hemorrhoids on retroflexed exam. Plan: Await pathology results Patient has an appointment on 01/15/23 in the GI Clinic with? Amy Elizondo NP. Repeat Colonoscopy interval based on path results - in 1-2 years if polyps are adenomatous and to check polypectomy sites in the transverse and descending colon. Colon polyps and diverticulosis handouts were given in the discharge area BIOPSIES:??A. ascending colon polyp:??Fragments of tubular adenoma; negative for high-grade dysplasia or carcinoma. ?B. transverse colon polyp ??Fragments of tubular adenoma; negative for high-grade dysplasia or carcinoma. ? C. transverse colon polyp @ 80 cms:??Fragments of tubular adenoma; negative for high-grade dysplasia or carcinoma. ?D. descending colon polyp @ 60 cms:??Hyperplastic mucosal polyp. ?E. rectal polyp:??Hyperplastic mucosal polyp. TODAY'S VISIT The procedure needs to be repeated o 1-2 years. The procedure was well tolerated. The results were explained and the patient is agreeable to the follow-up interval as stated. The bowel pattern has returned to normal. E ducation was provided to tell any 1st degree relatives about their findings to be sure that they are screened by age 45. Educated that they will be put on a recall list when it is time for their repeat scope but should they move out of state or away from the hospital they will need to remember along with their primary to repeat the procedure in a timely fashion to avoid any adverse complications. ROV 18 mos PFSH Medical History (Updated 01/27/23 @ 12:16 by SHIRLEY Anderson) Diverticulitis Gilbert's syndrome Villous adenoma of rectum VALENTINE (obstructive sleep apnea) Sarcoidosis GERD (gastroesophageal reflux disease) Hearing loss Surgical History (Updated 01/27/23 @ 12:16 by SHIRLEY Anderson) H/O colonoscopy S/P tendon repair History of colon resection Family History Father Colon cancer Social History Housing: House Are you a primary wound care nurse to a significant other at home: No Do you presently have visiting nurse or other home services: No Alcohol intake: current Alcohol intake frequency: a few times a month Patient Tobacco Use Status: Never used Tobacco e-Cigarette/Vaping Use: Never Used Second Hand Smoke Exposure: No service: No Current occupational status: employed Current occupation: [email or web address] Current occupational exposures/hazards: Yes Cognitive needs: No Hearing needs: No Vision needs: No Review of Systems Const Denies fatigue, Denies fever(s), Denies night sweats, Denies poor appetite and Denies weight loss Eyes Details: glasses Reports requires corrective lenses ENT Reports Normal hearing present, Denies dental pain, Denies dysphagia, Denies hearing loss, Denies mouth pain, Denies odynophagia, Denies throat swelling, Denies tongue swelling and Reports other (Dentition adequate) Card Reports no additional complaints Resp Reports no additional complaints GI Denies abdominal pain, Denies melena, Denies bloating, Denies hematochezia, Denies constipation, Denies GI cramping, Denies dysphagia, Denies excessive flatus, Denies early satiety, Denies heartburn, Denies diarrhea, Denies nausea, Denies odynophagia, Denies vomiting and Denies hematemesis Skin/Breast Denies pruritus, Denies lesions, Denies rash and Denies jaundice Neuro Reports Normal hearing present and Denies Abnormal speech present Endo Denies fatigue Aller/Immun Denies throat swelling and Denies tongue swelling Physical Exam Vital Signs: Last Vital Signs Pulse 71 01/27/23 11:58 BP 137/78 01/27/23 11:58 BMI result Body Mass Index 30.3 Const General: cooperative, no acute distress, well developed and well groomed Nutritional Appearance: well nourished and obese Orientation/consciousness: oriented to person, oriented to place and oriented to time Limitations: No language barrier HEENT Head: Yes normocephalic and Yes atraumatic Eyes General: appearance normal, both eyes and all related structures Pupils: Equal, round and reactive pupils present Neck Neck: Yes normal visual inspection and Yes no lymphadenopathy Thyroid: Thyroid normal Resp Effort & Inspection: normal respiratory effort and able to speak in complete sentences Auscultation: clear to auscultation bilaterally Cardio Rate: regular rate Rhythm: regular rhythm Heart sounds: Normal, physiologic split S2 sound present Peripheral pulses: radial pulses present and posterior tibial pulses present GI Inspection: No distended, No Abdominal panniculus present and Yes obesity Palpation (GI): Soft to palpation, nontender, no guarding, not rigid and No hepatosplenomegaly present Percussion: Yes normal to percussion Auscultation: normal bowel sounds Rectal Exam - Male: Yes deferred Skin General skin exam: no rashes or lesions noted, turgor normal, skin not dry, no jaundice, No spider nevi and no striae Rashes: no rashes Nails: normal Neuro General: oriented to person, oriented to place and oriented to time Cranial nerves: Yes Equal, round and reactive pupils present and Yes Normal hearing present Speech: No Abnormal speech present Extrem General: Yes normal to inspection, No clubbing, No cyanosis and No edema Psych Appearance: grossly normal and well kempt Mental Status: mental status grossly normal Speech and movement: Normal speech and movement present Affect: normal affect Attitude: cooperative Thought process: Normal thought process present and not confabulating Thought content: Normal thought content present Insight: Fair insight present (Psych) Judgement: Fair judgement present (Psych) Results Reviewed Results Reviewed: Laboratory Tests 06/03/22 06/03/22 08:16 08:16 WBC 4.9 Hgb 15.7 Hct 46.8 Estimated GFR > 60 Total Bilirubin 1.4 H AST 19 ALT 32 Alkaline Phosphatase 89 TSH 2.60 COLONOSCOPY 01/01/23 Findings: Terminal Ileum: Not evaluated Cecum:? Normal Ascending Colon:? A 9-10 mm sessile polyp removed with a hot snare Transverse Colon:? A 10-12 mm sessile polyp in the proximal TC - removed with a hot snare. An 18 to 20 mm sessile polyp in the TC at 80 cms - removed with a hot stiff snare and polypectomy site marked by vicki ink. Descending Colon:? A 2 to 2.5 cms flat polyp at 60 cms.? Polyp was raised with 5 cc of normal saline and removed with a hot stiff snare.? Polypectomy site was marked by Vicki ink. Moderate diverticulosis. Sigmoid Colon:? Moderate diverticulosis Rectum:? Anastomosis seen at 10-12 cms with a 12-15 mm polyp - removed with a hot snare. Ano-rectum:? Moderate internal hemorrhoids Colon preparation:? Good? Impression and Post Procedure Diagnosis: Colonoscopy Findings: Five medium to large sized polyps removed Moderate diverticulosis seen in the left colon Moderate hemorrhoids on retroflexed exam. Plan: Await pathology results Patient has an appointment on 01/15/23 in the GI Clinic with? Amy Elizondo NP. Repeat Colonoscopy interval based on path results - in 1-2 years if polyps are adenomatous and to check polypectomy sites in the transverse and descending colon. Colon polyps and diverticulosis handouts were given in the discharge area BIOPSIES:??A. ascending colon polyp:??Fragments of tubular adenoma; negative for high-grade dysplasia or carcinoma. ?B. transverse colon polyp ??Fragments of tubular adenoma; negative for high-grade dysplasia or carcinoma. ? C. transverse colon polyp @ 80 cms:??Fragments of tubular adenoma; negative for high-grade dysplasia or carcinoma. ?D. descending colon polyp @ 60 cms:??Hyperplastic mucosal polyp. ?E. rectal polyp:??Hyperplastic mucosal polyp. Assessment & Plan Assessment & Plan (1) Tubular adenoma of colon: Comment: 2022 scope = 3 >1cm sessile polyps repeat 1-2 years; 2016 scope performed at [facility] Code(s): D12.6 - Benign neoplasm of colon, unspecified Plan: The procedure needs to be repeated o 1-2 years. The procedure was well tolerated. The results were explained and the patient is agreeable to the follow-up interval as stated. The bowel pattern has returned to normal. Education was provided to tell any 1st degree relatives about their findings to be sure that they are screened by age 45. Educated that they will be put on a recall list when it is time for their repeat scope but should they move out of state or away from the hospital they will need to remember along with their primary to repeat the procedure in a timely fashion to avoid any adverse complications. ROV 18 mos (2) Family history of colon cancer: Comment: Father Code(s): Z80.0 - Family history of malignant neoplasm of digestive organs Coding Level of Care Code Est Pt Level 3 (69143) Diagnoses Tubular adenoma of colon D12.6 Family history of colon cancer Z80.0
[2023-01-27 11:58] VITALS: BP 137/78; PULSE 71; BMI 30.3
== END 2023-01-27 13:33 | disposition home or self-care (01) ==
PROVIDERS: PCP Nurse Practitioner Family; Visit Provider Nurse Practitioner
DX: D12.6 Benign neoplasm of colon, unspecified (principal); Z80.0 Family history of malignant neoplasm of digestive organs
CPT/HCPCS: 99213

== ENCOUNTER → 2023-01-27 11:50 | Outpatient (BNVA) | payer BC, SELFPAY | PROVIDERS: PCP Nurse Practitioner Family; Visit Provider Nurse Practitioner ==

== ENCOUNTER → 2023-02-17 15:51 | Outpatient (REF) | payer BC, SELFPAY | LOC: HO.SL 15:51 | PROVIDERS: PCP Nurse Practitioner Family; Visit Provider Nurse Practitioner Family | DX: G47.33 Obstructive sleep apnea (adult) (pediatric) (principal) | CPT/HCPCS: 95806 ==

== ENCOUNTER → 2023-02-17 16:05 | Outpatient (BNV) | payer BC, SELFPAY | PROVIDERS: PCP Nurse Practitioner Family; Visit Provider Psychiatry & Neurology Neurology | DX: G47.33 Obstructive sleep apnea (adult) (pediatric) (principal) | CPT/HCPCS: 95806 ==

== ENCOUNTER 2023-05-12 08:05 | Outpatient (AMB) | payer BC, SELFPAY ==
[2023-05-12 08:29] VITALS: BP 130/80; TEMP 37.4; BMI 30.8
--- NOTE | 2023-05-12 08:29 | MHC.OFFWIV ---
Intake Vital Signs 05/12/23 08:29 Height 6 ft 5 in Weight 260 lb BMI 30.8 BP 130/80 Blood Pressure Location Lt brachial Position Sitting Temp 99.3 F Temp Source Oral Intake Visit Reasons: EP, cough, runny nose ([phone]) Intake Note: pt is here for c.o cough, body aches, runny nose 2x weeks Patient Tobacco Use Status: Never used Tobacco Allergies morphine Allergy (Unknown, Verified 05/12/23 08:29) stomach pain and cramping penicillin V Allergy (Unknown, Verified 05/12/23 08:29) hives Penicillins Allergy (Unknown, Verified 05/12/23 08:29) UNKNOWN-REACTION A CHILD hydromorphone [Dilaudid] Adverse Reaction (Unknown, Verified 05/12/23 08:29) migranies Medication List - Last Reconciled 05/12/23 by Jenny Rangel PA-C albuterol sulfate 90 mcg/actuation 2 puffs inhalation Q4-6H PRN citalopram 20 mg PO DAILY 90 days fluticasone propion-salmeterol 232-14 mcg/actuation (AirDuo [employer]piClick) 1 inh inhalation Q12H fluticasone propionate 50 mcg/actuation 2 sprays intranasal DAILY ibuprofen 800 mg PO TID losartan 100 mg PO DAILY omeprazole 20 mg PO DAILY sildenafil 100 mg PO DAILY PRN 12 days Do you need a note to return to daycare/school/sports/work: Yes HPI HPI Comments History of Present Illness Details Patient is a 57yo M who presents for cold symptoms Sickness began 2 weeks ago Typical cold, cough with dark mucus Unsure of fever but + chills Exposed to covid 2 weeks ago; He tested which was negative He said no ST or ear pain + congestion and cough+ SOB at rest and movement No hx smoking or COPD admitted to hospital last night + RSV and pneumonia Dayquil and ibuprofen without relief Also looking for refill on ibuprofen and losartan (out for 1 week per pt) + body aches and fatigue PFSH Medical History (Updated 05/12/23 @ 09:26 by Jenny Rangel PA-C) Diverticulitis Gilbert's syndrome Villous adenoma of rectum VALENTINE (obstructive sleep apnea) Sarcoidosis GERD (gastroesophageal reflux disease) Hearing loss Surgical History (Updated 08/30/23 @ 12:16 by SHIRLEY Anderson) H/O colonoscopy S/P tendon repair History of colon resection Family History Father Colon cancer Social History Housing: House Are you a primary tire care manager to a significant other at home: No Do you presently have visiting nurse or other home services: No Alcohol intake: current Alcohol intake frequency: a few times a month Patient Tobacco Use Status: Never used Tobacco e-Cigarette/Vaping Use: Never Used Second Hand Smoke Exposure: No service: No Current occupational status: employed Current occupation: [employer] Current occupational exposures/hazards: Yes Cognitive needs: No Hearing needs: No Vision needs: No Review of Systems Const Reports body aches, Reports chills, Reports fatigue, Reports fever(s), Reports headache(s) and Reports lethargy Eyes Denies diplopia ENT Reports dizziness, Denies otalgia, Reports headache(s), Reports nasal congestion, Reports nasal discharge, Reports post nasal drip, Reports sinus pain, Reports sinus pressure, Denies sore throat, Denies throat swelling and Denies tongue swelling Card Denies chest pain, Denies chest pain at rest, Denies chest pain with activity and Reports dyspnea Resp Reports change in phlegm color, Reports chest congestion, Reports cough, Denies hemoptysis, Reports excessive phlegm production and Reports dyspnea GI Denies abdominal pain Musc Reports myalgias Neuro Reports dizziness, Reports headache(s) and Denies focal weakness Endo Reports fatigue Aller/Immun Denies throat swelling and Denies tongue swelling Physical Exam Vital Signs: Last Vital Signs Temp 99.3 F 05/12/23 08:29 BP 130/80 05/12/23 08:29 BMI result Body Mass Index 30.8 General: +low grade fever. Non-toxic, NAD. Speaking full sentences. Skin: Warm dry throughout Eye: EOMI HENT: Airway patent. Uvula midline. No pharyngeal erythema or edema. No RELATIONS DIRECTOR. +rhinorrhea and sinus facial pressure Bilateral canals clear. TM non-erythematous, non-bulging. No TM perforation or hemotympanum noted. Respiratory: No tachypnea. No accessory muscle use. CTA bilaterally. No wheezes, rales or rhonchi Cardiac: RRR. No murmur MSK: Full ROM extremities. Neurology: A/O x 3. No aphasia or facial droop. Gait without abnormality Psych: Good mood and affect Assessment & Plan Assessment & Plan (1) Cough: Code(s): R05.9 - Cough, unspecified Qualifiers: Cough type: acute Qualified Code(s): R05.1 - Acute cough (2) Pneumonia: Code(s): J18.9 - Pneumonia, unspecified organism Qualifiers: Laterality: right Lung location: lower lobe of lung Pneumonia type: due to unspecified organism Qualified Code(s): J18.9 - Pneumonia, unspecified organism Plan Patient seen and evaluated. O2 between 96-100 on room air Ambulating O2 remained 99% on room air without distress Hx of sarcoid I viewed chest xray and ? 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 Will call patient and inform of results Orders: Orders XR chest 2V Today R05.9 - Cough, unspecified Medications: New doxycycline hyclate 100 mg PO BID 20 caps 0RF J18.9 - Pneumonia, unspecified organism Refilled ibuprofen 800 mg PO TID 90 tabs 1RF losartan 100 mg PO DAILY 90 tabs 1RF Coding Level of Care Code Est Pt Level 3 (95400) Diagnoses Acute cough R05.1 Cough type: acute Pneumonia of right lower lobe due to infectious organism J18.9 Laterality: right Lung location: lower lobe of lung Pneumonia type: due to unspecified organism
== END 2023-05-12 09:09 | disposition home or self-care (01) ==
PROVIDERS: PCP Nurse Practitioner Family; Visit Provider Physician Assistant
DX: R05.1 Acute cough (principal); J18.9 Pneumonia, unspecified organism
CPT/HCPCS: 99213

== ENCOUNTER 2023-05-12 08:45 | Outpatient (REF) | payer BC, SELFPAY ==
--- NOTE | ~2023-05-12 | XR_ITS ---
EXAMINATION: XR CHEST CLINICAL INFORMATION: Cough COMPARISON: Chest radiograph from 07/15/2022 TECHNIQUE: 2 views of the chest were obtained. FINDINGS: No focal consolidation. No pneumothorax. Trachea is midline. Cardiac mediastinal silhouette is stable. No large pleural effusion. Degenerative changes of the thoracolumbar spine. Soft tissues are unremarkable. XR/XR chest 2V IMPRESSION: No acute cardiopulmonary process.
== END 2023-05-12 08:46 | disposition home or self-care (01) ==
LOC: HO.HMGCX 08:45
PROVIDERS: PCP Nurse Practitioner Family; Visit Provider Physician Assistant
DX: R05.9 Cough, unspecified (principal)
CPT/HCPCS: 71046

== ENCOUNTER → 2023-05-27 20:30 | Outpatient (REF) | payer BC, SELFPAY | LOC: HO.SL 20:30 | PROVIDERS: PCP Nurse Practitioner Family; Visit Provider Nurse Practitioner Family | DX: G47.33 Obstructive sleep apnea (adult) (pediatric) (principal) | CPT/HCPCS: 95811 ==

== ENCOUNTER → 2023-05-28 00:41 | Outpatient (BNV) | payer BC, SELFPAY | PROVIDERS: PCP Nurse Practitioner Family; Visit Provider Psychiatry & Neurology Neurology | DX: G47.33 Obstructive sleep apnea (adult) (pediatric) (principal) | CPT/HCPCS: 95811 ==

== ENCOUNTER 2023-06-25 09:03 | Outpatient (AMB) | payer BC, SELFPAY ==
[2023-06-25 09:05] VITALS: BP 138/80; PULSE 79; TEMP 36.6; O2SAT 100; BMI 31.3
--- NOTE | 2023-06-25 09:05 | MHC.OFFWIV ---
Intake Vital Signs 06/25/23 09:05 Height 6 ft 5 in Weight 264 lb BMI 31.3 BP 138/80 Blood Pressure Location Lt brachial Position Sitting Pulse 79 Pulse Source Pulse Oximeter Temp 97.8 F Temp Source Oral Pulse Oximetry (%) 100 Oxygen Delivery Method Room Air Intake Visit Reasons: EP hard breathing [id number] Intake Note: Pt is here today c/o SOB and coughing Patient Tobacco Use Status: Never used Tobacco Allergies morphine Allergy (Unknown, Verified 06/25/23 09:07) stomach pain and cramping penicillin V Allergy (Unknown, Verified 06/25/23 09:07) hives Penicillins Allergy (Unknown, Verified 06/25/23 09:07) UNKNOWN-REACTION A CHILD hydromorphone [Dilaudid] Adverse Reaction (Unknown, Verified 06/25/23 09:07) migranies Do you need a note to return to daycare/school/sports/work: No HPI HPI Comments History of Present Illness Details 57-year-old male with past medical history significant for asthma, essential hypertension, hyperlipidemia, and pulmonary sarcoidosis who presents to the walk-in clinic complaining of shortness a breath and cough for the past several weeks. Patient states he has a history of sarcoidosis he gets frequent exacerbations during this time the year due to the weather. He started to notice mild dyspnea and a dry cough several weeks ago. He states the shortness of breath is still mild with seems to get worse at night. He denies any orthopnea or paroxysmal nocturnal dyspnea. He denies any sputum production. He denies any fevers or chills. He denies any lower extremity edema, abdominal distention, or weight gain. He denies any viral URI symptoms such as nasal/sinus congestion/rhinorrhea, sore throat, myalgias, etc. [facility] Medical History (Updated 05/12/23 @ 09:26 by Jenny Rangel PA-C) Diverticulitis Gilbert's syndrome Villous adenoma of rectum VALENTINE (obstructive sleep apnea) Sarcoidosis GERD (gastroesophageal reflux disease) Hearing loss Surgical History (Updated 01/27/23 @ 12:16 by SHIRLEY Anderson) H/O colonoscopy S/P tendon repair History of colon resection Family History Father Colon cancer Social History Housing: House Are you a primary childcare center director to a significant other at home: No Do you presently have visiting nurse or other home services: No Alcohol intake: current Alcohol intake frequency: a few times a month Patient Tobacco Use Status: Never used Tobacco e-Cigarette/Vaping Use: Never Used Second Hand Smoke Exposure: No service: No Current occupational status: employed Current occupation: [employer] Current occupational exposures/hazards: Yes Cognitive needs: No Hearing needs: No Vision needs: No Review of Systems Const All systems reviewed & are unremarkable except as noted in HPI and below Reports no additional complaints Eyes Reports no additional complaints ENT Reports no additional complaints Card Reports no additional complaints Resp Reports no additional complaints GI Reports no additional complaints Reports no additional complaints Musc Reports no additional complaints Skin/Breast Reports system reviewed and no additional complaints, except as documented Neuro Reports no additional complaints Psych Reports no additional complaints Endo Reports no additional complaints Boone/Lymph Reports no additional complaints Aller/Immun Reports no additional complaints Physical Exam Const Other: Vital signs reviewed. Constitutional: Non-toxic appearing. No acute distress. Well-developed and well-nourished. HEENT: Normocephalic and atraumatic. Skin: Warm and dry. No rashes or lesions noted. Neck: Full and painless range of motion. No cervical lymphadenopathy. Cardio: Regular rate and rhythm. No murmurs, gallops, or rubs. No lower extremity edema. No JVD. Pulmonary: Patient has scant expiratory wheezing throughout. There are no crackles or rhonchi. Gastrointestinal: Soft, non-tender, and non-distended in all 4 quadrants. Normoactive bowel sounds in all 4 quadrants. Musculoskeletal: Normal range of motion in joints throughout the body. No deformity or other signs of injury. Neuro: Alert and oriented x4. Cranial nerves 2-12 grossly intact. No focal deficits appreciated. Psych: Normal mood and affect. Assessment & Plan Assessment & Plan (1) Acute asthmatic bronchitis: Code(s): J45.909 - Unspecified asthma, uncomplicated Plan This is a 57-year-old male with history of essential hypertension, hyperlipidemia, mild intermittent asthma, and pulmonary sarcoidosis who presented to the walk-in clinic complaining of shortness of breath and a dry cough for the past several weeks. He states he gets sarcoid exacerbations frequently at this time of the year due to the weather. The patient has no sputum production, fever/chills, lower extremity edema, abdominal distention, orthopnea/paroxysmal nocturnal dyspnea, or weight gain. On physical examination, the patient has scant expiratory wheezing throughout without crackles/rhonchi and no respiratory distress. He is maintaining oxygen saturations at 100% on room air. The patient likely has an acute asthma/sarcoidosis exacerbation in the setting of environmental allergens/weather changes. Patient was sent home on p.o. prednisone 40 mg daily x5 days as well as p.o. guaifenesin 600 mg every 12 hours as needed for congestion. He was instructed to follow-up here or proceed to the emergency room if he were to develop worsening shortness of breath, sputum production, fever/chills, or lower extremity edema. The patient verbalizes understanding and he is in agreement with the plan. Medications: New prednisone 40 mg (2 x 20 mg) PO DAILY 10 tabs 0RF guaifenesin ER 600 mg PO Q12H PRN 20 tabs 0RF congestion Coding Level of Care Code Est Pt Level 3 (22461) Diagnoses Acute asthmatic bronchitis J45.909
== END 2023-06-25 09:45 | disposition home or self-care (01) ==
PROVIDERS: PCP Nurse Practitioner Family; Visit Provider Physician Assistant Medical
DX: J45.909 Unspecified asthma, uncomplicated (principal)
CPT/HCPCS: 99213

== ENCOUNTER 2023-07-03 09:07 | Outpatient (AMB) | payer BC, SELFPAY ==
[2023-07-03 09:14] VITALS: BP 140/80; PULSE 75; TEMP 36.7; O2SAT 94; BMI 31.7
--- NOTE | 2023-07-03 09:14 | AM.OFFWIN_ITS ---
Intake Vital Signs 07/03/23 09:14 Height 6 ft 5 in Weight 267 lb 2 oz BMI 31.7 BP 140/80 H Blood Pressure Location Lt brachial Position Sitting Pulse 75 Pulse Source Pulse Oximeter Temp 98.0 F Temp Source Oral Pulse Oximetry (%) 94 Intake Visit Reasons: EP cough congestion sinus pressure Patient Tobacco Use Status: Never used Tobacco Allergies morphine Allergy (Unknown, Verified 07/03/23 09:32) stomach pain and cramping penicillin V Allergy (Unknown, Verified 07/03/23 09:32) hives Penicillins Allergy (Unknown, Verified 07/03/23 09:32) UNKNOWN-REACTION A CHILD hydromorphone [Dilaudid] Adverse Reaction (Unknown, Verified 07/03/23 09:32) migranies Do you need a note to return to daycare/school/sports/work: No HPI HPI Comments History of Present Illness Details 57-year-old male with past medical histo ry significant for asthma, essential hypertension, hyperlipidemia, and pulmonary sarcoidosis who presents to the walk-in clinic complaining of shortness a breath and cough for the past several weeks. Patient states he has a history of sarcoidosis and he gets frequent exacerbations during this time the year due to the weather. He started to notice mild dyspnea and a dry cough several weeks ago. He states the shortness of breath is still mild and seems to get worse at night. He denies any orthopnea or paroxysmal nocturnal dyspnea. He denies any sputum production. He denies any fevers or chills. He denies any lower extremity edema, abdominal distention, or weight gain. He denies any viral URI symptoms such as nasal/sinus congestion/rhinorrhea, sore throat, myalgias, etc. The patient was seen here on 06/25/2023 he was diagnosed with acute asthmatic bronchitis. He was discharged on p.o. prednisone 40 mg daily x5 days. He states that the prednisone did mildly relieve his symptoms for a few days but then they quickly returned. He continues to deny any orthopnea, paroxysmal nocturnal dyspnea, sputum production, fever/chills, lower extremity edema, abdominal distention, or weight gain, as well as any viral URI symptoms. He just states that he has mild dyspnea on exertion as well as wheezing. He denies any cardiac history or history of congestive heart failure. [facility] Medical History (Updated 07/03/23 @ 10:07 by CHAPARRO Medina) Diverticulitis Gilbert's syndrome Villous adenoma of rectum VALENTINE (obstructive sleep apnea) Sarcoidosis GERD (gastroesophageal reflux disease) Hearing loss Surgical History (Updated 01/27/23 @ 12:16 by SHIRLEY Andreson) H/O colonoscopy S/P tendon repair History of colon resection Family History (Reviewed 01/27/23 @ 12:03 by Yodit Saenz [facility]) Father Colon cancer Social History Housing: House Are you a primary care coordination manager to a significant other at home: No Do you presently have visiting nurse or other home services: No Alcohol intake: current Alcohol intake frequency: a few times a month Patient Tobacco Use Status: Never used Tobacco e-Cigarette/Vaping Use: Never Used Second Hand Smoke Exposure: No service: No Current occupational status: employed Current occupation: [employer] Current occupational exposures/hazards: Yes Cognitive needs: No Hearing needs: No Vision needs: No Review of Systems Const All systems reviewed & are unremarkable except as noted in HPI and below Reports no additional complaints Eyes Reports no additional complaints ENT Reports no additional complaints Card Reports no additional complaints Resp Reports no additional complaints GI Reports no additional complaints Reports no additional complaints Musc Reports no additional complaints Skin/Breast Reports system reviewed and no additional complaints, except as documented Neuro Reports no additional complaints Psych Reports no additional complaints Endo Reports no additional complaints Boone/Lymph Reports no additional complaints Aller/Immun Reports no additional complaints Physical Exam Const Other: Vital signs reviewed. Constitutional: Non-toxic appearing. No acute distress. Well-developed and well-nourished. HEENT: Normocephalic and atraumatic. Skin: Warm and dry. No rashes or lesions noted. Neck: Full and painless range of motion. No cervical lymphadenopathy. Cardio: Regular rate and rhythm. No murmurs, gallops, or rubs. No lower extremity edema. No JVD. Pulmonary: No respiratory distress. No accessory muscle usage. He has s cattered end expiratory wheezing. He has no crackles or rhonchi. Gastrointestinal: Soft, nontender, and nondistended in all 4 quadrants. Normoactive bowel sounds in all 4 quadrants. Genitourinary: No CVA tenderness. Musculoskeletal: Normal range of motion in joints throughout the body. No deformity or other signs of injury. Neuro: Alert and oriented x4. Cranial nerves 2-12 grossly intact. No focal deficits appreciated. Psych: Normal mood and affect. Assessment & Plan Assessment & Plan (1) Exacerbation of asthma: Code(s): J45.901 - Unspecified asthma with (acute) exacerbation Qualifiers: Asthma severity: mild Asthma persistence: intermittent Qualified Code(s): J45.21 - Mild intermittent asthma with (acute) exacerbation Plan This is a 57-year-old male who presented to the clinic complaining of persistent shortness of breath and wheezing despite a 5 day course of p.o. prednisone 40 mg daily. On physical examination, he continues to have expiratory wheezing throughout. He has no lower extremity edema, orthopnea/paroxysmal nocturnal dyspnea, or JVD to suggest acute congestive heart failure. He has no chest pain to suggest acute coronary syndrome. He has no hemoptysis, tachycardia, or hypoxia to suggest pulmonary embolism and the patient is PERC negative. History and physical most consistent with an acute asthma/sarcoidosis exacerbation. Patient was given a DuoNeb treatment in the office with significant improvement in his symptoms and significant improvement in his expiratory wheezing. Patient was given a prescription for a prednisone taper. He was advised to follow-up here or proceed directly to the emergency room if he were to develop any lower extremity edema, orthopnea/paroxysmal nocturnal dyspnea, hemoptysis, sputum production, or fever/chills. Patient verbalized understanding and is agreeable with the plan. Orders: Orders AMB Nebulizer Treatment Today R05.9 - Cough, unspecified, R06.2 - Wheezing Medications: New albuterol sulfate 2.5 mg (3 mL) inhalation ONCE 3 mL 0RF R05.9 - Cough, unspecified, R06.2 - Wheezing ipratropium bromide 2.5 mL inhalation ONCE 2.5 mL 0RF R05.9 - Cough, unspecified, R06.2 - Wheezing prednisone Take 4 tablets daily x 3 days followed by 3 tablets daily x3 days followed by 2 tablets daily x3 days followed by 1 tablet daily x3 days followed by 1/2 ta blet daily x2 days. 10 mg PO DIRECTED 31 tabs 0RF Coding Level of Care Code Est Pt Level 3 (33246) Diagnoses Mild intermittent asthma with exacerbation J45.21 Asthma severity: mild Asthma persistence: intermittent
== END 2023-07-03 11:09 | disposition home or self-care (01) ==
PROVIDERS: PCP Nurse Practitioner Family; Visit Provider Physician Assistant Medical
DX: J45.21 Mild intermittent asthma with (acute) exacerbation (principal)
CPT/HCPCS: 99213

== ENCOUNTER 2023-07-31 10:05 | Outpatient (AMB) | payer BC, SELFPAY ==
[2023-07-31 10:05] VITALS: BP 138/98; PULSE 74; TEMP 37.7; O2SAT 92; BMI 31.3
--- NOTE | 2023-07-31 10:05 | AM.OFFWIN_ITS ---
Intake Vital Signs 07/31/23 10:05 Height 6 ft 5 in Weight 264 lb 4 oz BMI 31.3 BP 138/98 H Blood Pressure Location Rt brachial Position Sitting Pulse 74 Pulse Source Pulse Oximeter Temp 99.9 F Temp Source Oral Pulse Oximetry (%) 92 Oxygen Delivery Method Room Air Intake Visit Reasons: EP Cough, Difficulty breathing Intake Note: Pt is here today for a cough and difficulty breathing been ongoing for months. Patient Tobacco Use Status: Never used Tobacco Allergies morphine Allergy (Unknown, Verified 07/31/23 10:09) stomach pain and cramping penicillin V Allergy (Unknown, Verified 07/31/23 10:09) hives Penicillins Allergy (Unknown, Verified 07/31/23 10:09) UNKNOWN-REACTION A CHILD hydromorphone [Dilaudid] Adverse Reaction (Unknown, Verified 07/31/23 10:09) migranies Do you need a note to return to daycare/school/sports/work: No HPI HPI Comments History of Present Illness Details This is a 57-year-old male with a past medical history of asthma and hypertension returning for exacerbation of his asthma. Patient was seen earlier this month and was placed on a course of prednisone. Patient states feels well when on the prednisone however his breathing worsens and he uses his albuterol inhaler with increased frequency once the taper is finished. Patient denies having any fevers, chills, chest pain, hemoptysis or recent sick contacts. [facility] Medical History Diverticulitis Gilbert's syndrome Villous adenoma of rectum VALENTINE (obstructive sleep apnea) Sarcoidosis GERD (gastroesophageal reflux disease) Hearing loss Surgical History H/O colonoscopy S/P tendon repair History of colon resection Family History Father Colon cancer Social History Housing: House Are you a primary medicare sales representative to a significant other at home: No Do you presently have visiting nurse or other home services: No Alcohol intake: current Alcohol intake frequency: a few times a month Patient Tobacco Use Status: Never used Tobacco e-Cigarette/Vaping Use: Never Used Second Hand Smoke Exposure: No service: No Current occupational status: employed Current occupation: [employer] Current occupational exposures/hazards: Yes Cognitive needs: No Hearing needs: No Vision needs: No Review of Systems Const All systems reviewed & are unremarkable except as noted in HPI and below Eyes Reports as per HPI Card Reports as per HPI and Reports dyspnea Resp Reports as per HPI, Reports cough, Reports dyspnea and Reports wheezing Psych Reports no additional complaints Aller/Immun Reports wheezing Physical Exam Vital Signs: Last Vital Signs Temp 99.9 F 07/31/23 10:05 Pulse 74 07/31/23 10:05 BP 138/98 H 07/31/23 10:05 Pulse Ox 92 07/31/23 10:05 Oxygen Delivery Method Room Air 07/31/23 10:05 BMI result Body Mass Index 31.3 POX 92% on room air; Temperature high normal - patient denies fevers, chills, fatigue, sick contacts Const General: cooperative, no acute distress, well developed, alert and awake Nutritional Appearance: average body habitus Orientation/consciousness: patient oriented x3 Limitations: no limitations HEENT Head: Yes normal to inspection and Yes normocephalic Eyes Eyelids: Yes eyelids normal Conjunctivae: conjunctivae normal EOM: EOMs intact bilaterally Neck Lymphatic: no lymphadenopathy noted Resp Effort & Inspection: normal respiratory effort, no audible wheezes, Actively coughing, no respiratory distress, no stridor and not tachypneic Auscultation: no rhonchi, wheezes expiratory wheezes (bibasilar) and diminished lung sounds Cardio Rate: regular rate and not tachycardic Rhythm: regular rhythm Neuro General: patient oriented x3 Psych Appearance: grossly normal Mental Status: mental status grossly normal Insight: Good insight present (Psych) Judgement: Good judgement present (Psych) Assessment & Plan Assessment & Plan (1) Exacerbation of asthma: Comment: Patient is afebrile however his oxygenation is 92% on room air. Patient is not in respiratory distress and I do not feel that imaging is warranted at this time. Given his increased use of his albuterol inhaler plus his hypoxia, patient will be placed on an additional prednisone taper and started on an asthma maintenance medication. Patient is to follow up with his primary care provider in approximately 1 month; sooner for any worsening symptoms. Code(s): J45.901 - Unspecified asthma with (acute) exacerbation Qualifiers: Asthma severity: mild Asthma persistence: intermittent Qualified Code( s): J45.21 - Mild intermittent asthma with (acute) exacerbation Plan: Prednisone taper, patient started on albuterol maintenance inhaler. Medications: New ibuprofen 800 mg PO Q8H PRN 30 tabs 0RF pain prednisone 20 mg orally 60mg x 3 days, 40mg x 3 days, 20mg x 3 days; 18 tabs 0RF fluticasone propion-salmeterol 115-21 mcg/actuation (Advair HFA) 2 puffs inhalation BID 12 grams 1RF Coding Level of Care Code Est Pt Level 3 (44177) Diagnoses Mild intermittent asthma with exacerbation J45.21 Asthma severity: mild Asthma persistence: intermittent Time Spent (min) 20
== END 2023-07-31 10:55 | disposition home or self-care (01) ==
PROVIDERS: PCP Nurse Practitioner Family; Visit Provider Physician Assistant
DX: J45.21 Mild intermittent asthma with (acute) exacerbation (principal)
CPT/HCPCS: 99213

== ENCOUNTER 2023-09-06 14:59 | Outpatient (REF) | payer BC, SELFPAY ==
[2023-09-06 16:12] LABS: Appearance Urine Clear; Color Urine Yellow; Glucose Urine UA Negative (Negative); Leukocyte Esterase Urine Negative (Negative); Nitrite Urine Negative (Negative); Specific Gravity - Urine <= 1.005 (1.005-1.025); Urine Blood Negative (Negative); Urine Ketones Negative (Negative); Urine Protein Negative (Neg-Trace)
[2023-09-06 16:12] LABS: MANUAL DIFF FLAG NO
[2023-09-06 16:21] LABS: Basophils Absolute Auto 0.1 X10*3/uL (0.0-0.2); Basophils Percent Auto 0.9 % (0-2); Eosinophils Absolute Auto 0.3 X10*3/uL (0.0-0.4); Eosinophils Percent Auto 4.3 % (0-4); Hematocrit 43.6 % (42.0-52.0); Imm Gran Abs Auto 0.03 X10*3/uL (0.00-0.03); Imm Gran Pct Auto 0.5 % (0.0-0.4); Lymphocytes Percent Auto 17.7 % (20-40); Mean Corpuscular HGB Conc 34.4 g/dl (31.0-36.0); Mean Corpuscular Volume 87.2 fL (80.0-98.0); Mean Platelet Volume 9.9 fL (9.4-12.4); Monocytes Absolute Auto 0.6 X10*3/uL (0.1-1.2); Monocytes Percent Auto 9.6 % (2-11); Neutrophils Absolute Auto 3.9 x10*3/uL (2.0-8.3); Platelet Count 175 X10*3/uL (160-400); Red Cell Distribution Width 12.8 % (11.0-16.0); White Blood Count 5.8 X10*3/uL (4.8-10.8)
[2023-09-06 16:59] LABS: Alanine Aminotransferase 25 U/L (0-40); Albumin Level 4.2 g/dL (3.5-5.0); Alkaline Phosphatase 82 U/L (39-117); Anion Gap 11 (12-20); Aspartate Amino Transferase 22 U/L (5-37); Bilirubin Total 1.3 mg/dL (0.0-1.0); Blood Urea Nitrogen 22 mg/dL (9-16); Calcium 9.6 mg/dL (8.4-10.2); Carbon Dioxide 27 mmol/L (22-29); Chloride 107 mmol/L (96-108); Cholesterol 183 mg/dL (<200); Estimated Glomerular Filt Rate > 60; Glucose Fasting 93 mg/dL (60-99); HDL Cholesterol 43 mg/dL (>40); LDL Cholesterol Calculated 112 mg/dL (<100); Potassium 4.3 mmol/L (3.3-5.1); Sodium 141 mmol/L (135-145); Total Protein 7.1 g/dL (6.5-8.0); Triglycerides 142 mg/dL (<150)
[2023-09-06 17:10] LABS: Prostate Specific Antigen Scr 1.37 ng/mL (<0.05-4.0)
[2023-09-06 17:16] LABS: TSH reflex Free T4 2.98 uIU/mL (0.32-4.0)
== END 2023-09-06 15:00 | disposition home or self-care (01) ==
LOC: HO.HMGCLDS 14:59
PROVIDERS: PCP Nurse Practitioner Family; Visit Provider Nurse Practitioner Family
DX: Z00.00 Encounter for general adult medical examination without abnormal findings (principal); Z12.5 Encounter for screening for malignant neoplasm of prostate; Z13.6 Encounter for screening for cardiovascular disorders
CPT/HCPCS: 36415; 80053; 80061; 81003; 84153; 84443; 85025

== ENCOUNTER 2023-09-14 13:37 | Outpatient (AMB) | payer BC, SELFPAY ==
--- NOTE | 2023-09-14 13:39 | A.OFFPC_ITS ---
Vital Signs 09/14/23 13:42 Weight 265 lb BP 130/90 H Blood Pressure Location Rt brachial Position Sitting Pulse 74 Pulse Source Pulse Oximeter Pulse Oximetry (%) 95 Oxygen Delivery Method Room Air Intake Visit Reasons: Annual PE Intake Note: Patient here for physical exam. Colonoscopy: 2022 Allergies morphine Allergy (Unknown, Verified 09/14/23 13:55) stomach pain and cramping penicillin V Allergy (Unknown, Verified 09/14/23 13:55) hives Penicillins Allergy (Unknown, Verified 09/14/23 13:55) UNKNOWN-REACTION A CHILD hydromorphone [Dilaudid] Adverse Reaction (Unknown, Verified 09/14/23 13:55) migranies Medication List - Last Reconciled 09/14/23 by [facility] albuterol sulfate 90 mcg/actuation 2 puffs inhalation Q4-6H PRN citalopram 20 mg PO DAILY 90 days fluticasone propion-salmeterol 115-21 mcg/actuation (Advair HFA) 2 puffs inhalation BID fluticasone propion-salmeterol 232-14 mcg/actuation (AirDuo RespiClick) 1 inh inhalation Q12H fluticasone propionate 50 mcg/actuation 2 sprays intranasal DAILY ibuprofen 800 mg PO Q8H PRN ibuprofen 800 mg PO TID losartan 100 mg PO DAILY omeprazole 20 mg PO DAILY sildenafil 100 mg PO DAILY PRN 12 days Tobacco use date assessed: 09/14/23 Dental Screening Dental Screen Date: 09/14/23 Did you have a dental visit in the last 12 months?: No Did you have a dental problem in the last 6 months where you did not have access to dental care?: No Was dental information given to patient?: Patient has dentist HPI Annual PE 2 HPI Details Pt is here for a PE. Labs were already performed. Colon screen is up to date. PSA is up to date. Denies dribbling with urination, weak stream, and frequent nocturia. Pt has a hx of sarcoidosis. He reports intermittent shortness of breath that is worse in the winter. He states that prednisone helps with this. Pt was referred to pulmonology previously but he has not heard anything, will check on this. Will also order chest CT. Pt has a palpable lesion to his scrotum. ? previous scar tissue (vasectomy). Will order US. Pt is fair skinned. He also has skin lesions to his left christianity. Will refer to derm. HTN: Pt's BP is elevated today. Will start amlodipine. Will have pt monitor his blood pressure at home and drop off readings. [facility] Medical History Diverticulitis Gilbert's syndrome Villous adenoma of rectum VALENTINE (obstructive sleep apnea) Sarcoidosis GERD (gastroesophageal reflux disease) Hearing loss Surgical History H/O colonoscopy S/P tendon repair History of colon resection Family History Father Colon cancer Social History Housing: House Are you a primary home care manager rn to a significant other at home: No Do you presently have visiting nurse or other home services: No Alcohol intake: current Alcohol intake frequency: a few times a month Patient Tobacco Use Status: Never used Tobacco e-Cigarette/Vaping Use: Never Used Second Hand Smoke Exposure: No service: No Current occupational status: employed Current occupation: [employer] Current occupational exposures/hazards: Yes Cognitive needs: No Hearing needs: No Vision needs: No Questionnaire PHQ-9 Over the last 2 weeks, how often have you been bothered by any of the following problems? 1. Little interest or pleasure in doing things: not at all 2. Feeling down, depressed, or hopeless: several days 3. Trouble falling or staying asleep, or sleeping too much: several days 4. Feeling tired or having little energy: nearly every day 5. Poor appetite or overeating: more than half the days 6. Feeling bad about yourself - or that you are a failure or have let yourself or your family down: not at all 7. Trouble concentrating on things, such as reading the newspaper or watching television: not at all 8. Moving or speaking so slowly that other people could have noticed. Or the opposite - being so fidgety or restless that you have been moving around a lot more than usual: not at all 9. Thoughts that you would be better off or of hurting yourself in some way: not at all Total score: 7 Depression Screening Interpretation: Negative Depression Screening Done: Yes 12809 - PHQ-9 Billing: Yes Source: Developed by Drs. Mann Lemus, Kerry Sharma, Femi Limon and colleagues, with an educational sadiq from [employer]. Thrive Questionnaire Date Thrive assessed: 09/14/23 I am a: Patient What is your living situation today?: I have a steady place to live Within the past 12 months, did the food you bought not last and you didn't have the money to get more?: Never true Within the past 12 months, did you worry whether your food would run out before you got money to buy more?: Sometimes True Please select the resources that you would like help with: None THRIVE Score: 1 AUDIT C Alcohol Use Questionnaire (AUDIT-C) 1. How often do you have a drink containing alcohol?: 2-3 times a week 2. How many drinks containing alcohol do you have on a typical day when you are drinking?: 5 or 6 3. How often do you have six or more drinks on one occasion?: Weekly Total Score: 8 Score Reviewed/Action Taken: No EVI-7 AMB Questionnaire EVI-7 Date EVI - 7 assessed: 09/14/23 Feeling nervous, anxious, or on edge: 1 = Several days Not being able to stop or control worryin = Not at all Worrying too much about different things: 0 = Not at all Trouble relaxin = More than half the days Being so restless that it is hard to sit still: 0 = Not at all Becoming easily annoyed or irritable: 2 = More than half the days Feeling afraid as if something awful might happen: 0 = Not at all Total EVI-7 score (0-4 normal; 5-9 mild; 10-14 moderate; 15-21 severe): 5 Source: Developed by Drs. Mann Lemus, Femi Major and colleagues, with an educational sadiq from [employer]. EVI-7 Assessment Billing EVI-7 Assessment Tool: EVI-7 Assessment 11039 Review of Systems Const Denies chills and Denies fever(s) Eyes Denies blurry vision ENT Denies vertigo, Denies dizziness and Denies sore throat Card Denies chest pain at rest, Denies chest pain with activity, Denies diaphoresis and Reports dyspnea (intermittent) Resp Denies cough, Reports dyspnea (intermittent) and Denies wheezing GI Denies abdominal pain, Denies melena, Denies hematochezia, Denies constipation, Denies diarrhea and Denies loose stools Denies hematuria Musc Denies numbness and Denies tingling Skin/Breast Denies lesions Neuro Denies vertigo, Denies dizziness, Denies numbness and Denies tingling Psych Denies anxiety, Denies depression, Denies homicidal ideation, Denies suicidal ideation and Denies other (substance abuse) Aller/Immun Denies wheezing Physical exam (Primary Care) Vital Signs: Last Vital Signs Pulse 74 09/14/23 13:42 BP 130/90 H 09/14/23 13:42 Pulse Ox 95 09/14/23 13:42 Oxygen Delivery Method Room Air 09/14/23 13:42 Tobacco/Smoking Status: Tobacco use Status Tobacco use date assessed 09/14/23 09/14/23 13:48 Patient Tobacco Use Status Never used Tobacco 09/14/23 13:42 e-Cigarette/Vaping Use Never Used 09/14/23 13:42 PHQ-9: PHQ-9 Score PHQ-9: Total score 7 09/14/23 13:48 Depression Screening Interpretation: Negative Thrive Assessment: Date of Thrive Assessment Date Thrive assessed 09/14/23 09/14/23 13:48 Const General: cooperative Nutritional Appearance: well nourished Orientation/consciousness: patient oriented x3 HENMT Head: Yes normal to inspection, Yes normocephalic and Yes atraumatic Ears: TM's normal bilaterally Eyes General: appearance normal, both eyes and all related structures Alignment and Position: alignment normal and position normal Neck Neck: Yes normal visual inspection and Yes no lymphadenopathy Thyroid: Thyroid normal Resp Effort & Inspection: normal respiratory effort Auscultation: clear to auscultation bilaterally Cardio Rate: regular rate Rhythm: regular rhythm Heart sounds: S1 normal heart sound present, S2 normal heart sound present and no murmurs GI Palpation (GI): Soft to palpation and nontender Auscultation: normal bowel sounds Other: center of scrotum with palpable lesion, ? previous scar tissue Male General Exam: Yes normal external exam Penis: normal penis Scrotum: scrotum normal, testes descended bilaterally and no inguinal hernias Testes: no testicular mass Skin Other: fair skinned, left christianity region with slightly raised, slightly darker, smooth lesions. several macular/papular lesion to back, range in size and shape. Rashes: no rashes Neuro General: patient oriented x3, moves all extremities, no focal motor deficits and deep tendon reflexes 2+ bilaterally Romberg Test: Negative Psych Appearance: grossly normal Mental Status: mental status grossly normal Speech and movement: Normal speech and movement present Affect: normal affect Attitude: cooperative Thought process: Normal thought process present Thought content: Normal thought content present Insight: Good insight present (Psych) Judgement: Good judgement present (Psych) Assessment and Plan Assessment & Plan (1) Physical exam: Code(s): Z00.00 - Encounter for general adult medical examination without abnormal findings Plan: Labs already performed (2) Scrotal lesion: Code(s): N50.9 - Disorder of male genital organs, unspecified Plan: US ordered (3) Skin lesions: Code(s): L98.9 - Disorder of the skin and subcutaneous tissue, unspecified Plan: Referred to derm (4) Sarcoidosis: Code(s): D86.9 - Sarcoidosis, unspecified Plan: Chest CT ordered Plan The patient agreed to the use of a medical coding instructor for this encounter. [facility] by Taniya Hunt medical coding instructor, on 09/14/2023 at 13:50 EST. Orders: Orders CT chest wo IV con Today D86.9 - Sarcoidosis, unspecified US scrotum Today N50.9 - Disorder of male genital organs, unspecified Referrals Dermatology Referral L98.9 - Disorder of the skin and subcutaneous tissue, unspecified Medications: New amlodipine 2.5 mg PO DAILY 90 days 90 tabs 0RF Refilled ibuprofen 800 mg PO Q8H PRN 30 tabs 0RF pain Coding Level of Care Code Est Pt Prev Care 40-64y(90511) Diagnoses Physical exam Z00.00 Scrotal lesion N50.9 Skin lesions L98.9 Sarcoidosis D86.9 Additional Codes EVI-7 Assessment Billing - EVI-7 Assessment Tool: EVI-7 Assessment 93132 ([id number])
[2023-09-14 13:42] VITALS: BP 130/90; PULSE 74; O2SAT 95
== END 2023-09-14 14:19 | disposition home or self-care (01) ==
PROVIDERS: PCP Nurse Practitioner Family; Visit Provider Nurse Practitioner Family
DX: Z00.00 Encounter for general adult medical examination without abnormal findings (principal); N50.9 Disorder of male genital organs, unspecified; L98.9 Disorder of the skin and subcutaneous tissue, unspecified; D86.9 Sarcoidosis, unspecified
CPT/HCPCS: 99396

== ENCOUNTER 2023-10-27 14:28 | Outpatient (REF) | payer BC, SELFPAY ==
--- NOTE | ~2023-10-27 | US_ITS ---
EXAMINATION: US SCROTUM CLINICAL INFORMATION: Scrotal lesion, no previous imaging. COMPARISON: None available. TECHNIQUE: A sonogram of the scrotum was performed assessing holman-scale appearance and color Doppler flow. Spectral Doppler analysis of the arterial and venous flow were performed in the testes bilaterally. FINDINGS: RIGHT: Right testicle measures 5.0 x 2.6 x 4.7 cm, volume 32.0 mL. No focal testicular parenchymal lesions are visualized. Spectral Doppler analysis of the arterial and venous flow is normal in the right testis. Diffuse enlargement of the right epididymis relative to the left. 0.8 x 0.5 x 0.6 cm and 0.3 x 0.4 x 0.4 cm cysts in the region of the right epididymis. Right epididymal Doppler flow is normal. Large hydrocele appears complex with scattered internal echoes no varicocele. LEFT: Left testicle measures 5.2 x 2.8 x 4.1 cm, volume 31.1 mL. No focal testicular parenchymal lesions are visualized. Spectral Doppler analysis of the arterial and venous flow is normal in the left testis. Left epididymal head is normal in size. No left hydrocele or varicocele is seen. Left epididymal Doppler flow is normal. US/US scrotum IMPRESSION: 1. Large right hydrocele appears complex with scattered internal echoes. 2. Diffuse asymmetric enlargement of the right epididymis relative to the left. 3. There are 0.8 x 0.5 x 0.6 cm and 0.3 x 0.4 0.4 cm cysts in the region of the right epididymis. 4. Urology consultation recommended.
== END 2023-10-27 14:29 | disposition home or self-care (01) ==
LOC: HO.HMGCX 14:28
PROVIDERS: PCP Nurse Practitioner Family; Visit Provider Nurse Practitioner Family
DX: N50.9 Disorder of male genital organs, unspecified (principal)
CPT/HCPCS: 76870

== ENCOUNTER 2024-01-06 08:09 | Outpatient (AMB) | payer BC, SELFPAY ==
--- NOTE | 2024-01-06 08:10 | MHC.OFFWIV ---
Intake Vital Signs 01/06/24 08:13 Height 6 ft 5 in Weight 257 lb BMI 30.5 BP 136/88 Blood Pressure Location Lt brachial Position Sitting Pulse 68 Pulse Source Pulse Oximeter Temp 98.3 F Temp Source Oral Pulse Oximetry (%) 98 Oxygen Delivery Method Room Air Intake Visit Reasons: EP LT foot pain Intake Note: pt c/o LT foot pain. Started a couple weeks ago. No known injury Patient Tobacco Use Status: Never used Tobacco Allergies morphine Allergy (Unknown, Verified 01/06/24 08:10) stomach pain and cramping penicillin V Allergy (Unknown, Verified 01/06/24 08:10) hives Penicillins Allergy (Unknown, Verified 01/06/24 08:10) UNKNOWN-REACTION A CHILD hydromorphone [Dilaudid] Adverse Reaction (Unknown, Verified 01/06/24 08:10) migranies Do you need a note to return to daycare/school/sports/work: No HPI EP LT foot pain HPI Details This note is constructed using voice recognition software. While every effort has been made to ensure accuracy, communications scientist errors may have been included. The patient is a 58 year old male who presents to the clinic today with left foot pain. He notes gradual onset over the last couple of weeks, and the pain seems to be worse when he steps on it. The pain is in the plantar surface only, not under the heel or toes. He has tried ibuprofen with minimal effect, has not tried any other methods to reduce the pain. He has had no injury to the area. No numbness or tingling. No lesions or redness. [facility] Medical History Diverticulitis Gilbert's syndrome Villous adenoma of rectum VALENTINE (obstructive sleep apnea) Sarcoidosis GERD (gastroesophageal reflux disease) Hearing loss Surgical History H/O colonoscopy S/P tendon repair History of colon resection Family History Father Colon cancer Social History Housing: House Are you a primary care assistant to a significant other at home: No Do you presently have visiting nurse or other home services: No Alcohol intake: current Alcohol intake frequency: a few times a month Patient Tobacco Use Status: Never used Tobacco e-Cigarette/Vaping Use: Never Used Second Hand Smoke Exposure: No service: No Current occupational status: employed Current occupation: [employer] Current occupational exposures/hazards: Yes Cognitive needs: No Hearing needs: No Vision needs: No Review of Systems Const All systems reviewed & are unremarkable except as noted in HPI and below Physical Exam Vital Signs: Last Vital Signs Temp 98.3 F 01/06/24 08:13 Pulse 68 01/06/24 08:13 BP 136/88 01/06/24 08:13 Pulse Ox 98 01/06/24 08:13 Oxygen Delivery Method Room Air 01/06/24 08:13 BMI result Body Mass Index 30.5 Const General: cooperative, healthy appearing, comfortable, no acute distress and alert Orientation/consciousness: patient oriented x3 Limitations: no limitations Skin General skin exam: no rashes or lesions noted, elasticity normal and turgor normal Neuro General: patient oriented x3 Extrem Other: Tender to palpation on left plantar fascia region, with inflammation present. Full range of motion of foot and ankle. No erythema, warmth. General: Yes normal to inspection, Yes full ROM, Yes capillary refill normal and Yes normal exam except as noted Psych Appearance: grossly normal Mental Status: mental status grossly normal Speech and movement: Normal speech and movement present Affect: normal affect Assessment & Plan Assessment & Plan (1) Plantar fasciitis of left foot: Code(s): M72.2 - Plantar fascial fibromatosis Plan: Home exercise program provided for symptomatic management. Advised ice, NSAIDs for symptomatic relief. X-ray ordered to evaluate for spurs that may contribute to worsening pain. Plan See above for full details and plan. Orders: Orders XR foot LT 2V Today M72.2 - Plantar fascial fibromatosis Coding Level of Care Code Est Pt Level 4 (50229) Diagnoses Plantar fasciitis of left foot M72.2
[2024-01-06 08:13] VITALS: BP 136/88; PULSE 68; TEMP 36.8; O2SAT 98; BMI 30.5
== END 2024-01-06 08:54 | disposition home or self-care (01) ==
PROVIDERS: PCP Nurse Practitioner Family; Visit Provider Registered Nurse
DX: M72.2 Plantar fascial fibromatosis (principal)
CPT/HCPCS: 99214

== ENCOUNTER 2024-01-06 08:55 | Outpatient (REF) | payer BC, SELFPAY ==
--- NOTE | ~2024-01-06 | XR_ITS ---
EXAMINATION: XR FOOT, LEFT CLINICAL INFORMATION: Plantar fascial fibromatosis COMPARISON: None available. TECHNIQUE: AP, lateral, and oblique views of the left foot. FINDINGS: The bones and soft tissues are normal aside from some mild flexion deformities of the second through fifth toes. No fracture. Alignment is anatomic. Joint spaces are maintained. XR/XR foot LT min 3V IMPRESSION: No acute osseous abnormality.
== END 2024-01-06 08:56 | disposition home or self-care (01) ==
LOC: HO.HMGCX 08:55
PROVIDERS: PCP Nurse Practitioner Family; Visit Provider Registered Nurse
DX: M72.2 Plantar fascial fibromatosis (principal)
CPT/HCPCS: 73630; 81003

== ENCOUNTER 2024-01-06 12:39 | Outpatient (AMB) | payer BC, SELFPAY ==
--- NOTE | 2024-01-06 12:57 | MHC.OFFVIS ---
Intake Visit Reasons: left hydrocele/ right epididymitis Intake Note: New Patient presents for initial visit for left hydrocele, right epididymitis Urology Medications: Sildenafil Blood Thinner: none Caisson Worker Required: No Accompanied by: Self / Same As Patient Allergies morphine Allergy (Unknown, Verified 01/06/24 13:52) stomach pain and cramping penicillin V Allergy (Unknown, Verified 01/06/24 13:52) hives Penicillins Allergy (Unknown, Verified 01/06/24 13:52) UNKNOWN-REACTION A CHILD hydromorphone [Dilaudid] Adverse Reaction (Unknown, Verified 01/06/24 13:52) migranies Medication List - Last Reconciled 01/06/24 by ENRIKE Nava-YI albuterol sulfate 90 mcg/actuation 2 puffs inhalation Q4-6H PRN amlodipine 2.5 mg PO DAILY 90 days citalopram 20 mg PO DAILY 90 days fluticasone propion-salmeterol 115-21 mcg/actuation (Advair HFA) 2 puffs inhalation BID fluticasone propion-salmeterol 232-14 mcg/actuation (AirDuo RespiClick) 1 inh inhalation Q12H fluticasone propionate 50 mcg/actuation 2 sprays intranasal DAILY ibuprofen 800 mg PO Q8H PRN losartan 100 mg PO DAILY omeprazole 20 mg PO DAILY sildenafil 100 mg PO DAILY PRN 12 days HPI Comments Details: Heath Beaulieu is a very pleasant 58-year-old male patient of Dr. Reeder. He has a past medical history of diverticulitis, Gilbert's syndrome, obstructive sleep apnea, sarcoidosis, GERD, and hearing loss. He presents to the office today as a new patient for bilateral epididymal head cyst as well as a large right hydrocele. In discussion with the patient today he reports having followed up with his PCP for his wellness visit at which time exam noted abnormalities in a scrotal ultrasound was ordered for further assessment evaluation and patient was referred to Urology for further assessment evaluation. These results were reviewed with the patient today. Large right hydrocele, and there are 2 right epididymis cysts. In assessment of the patient today the penis is circumcised bilateral small epididymal head cysts palpated as well as small to moderate right hydrocele. No pain elicited on exam today. No open areas, lesions, or drainage noted to the penis/scrotum/or testicles. Discussed further treatment options to include surveillance monitoring versus surgical intervention. Risks and benefits of these interventions were discussed. He otherwise denies any bothersome urinary issues. In review of patient's chart it appears PCP following PSAs. PSA 09/21 1.4. Patient reports having KEYA with PCP. He otherwise offers no other issues or concerns at this time. [facility] Medical History Diverticulitis Gilbert's syndrome Villous adenoma of rectum VALENTINE (obstructive sleep apnea) Sarcoidosis GERD (gastroesophageal reflux disease) Hearing loss Surgical History H/O colonoscopy S/P tendon repair History of colon resection Family History Father Colon cancer Social History Housing: House Are you a primary healthcare economics consultant to a significant other at home: No Do you presently have visiting nurse or other home services: No Alcohol intake: current Alcohol intake frequency: a few times a month Patient Tobacco Use Status: Never used Tobacco e-Cigarette/Vaping Use: Never Used Second Hand Smoke Exposure: No service: No Current occupational status: employed Current occupation: [employer] Current occupational exposures/hazards: Yes Cognitive needs: No Hearing needs: No Vision needs: No Review of Systems Const All systems reviewed & are unremarkable except as noted in HPI and below Physical Exam Const General: cooperative, healthy appearing, comfortable, no acute distress, well developed, alert and awake Nutritional Appearance: overweight Orientation/consciousness: patient oriented x3 Limitations: no limitations HEENT Head: Yes normal to inspection, Yes normocephalic and Yes atraumatic Ears: hearing grossly normal bilaterally Eyes General: appearance normal, both eyes and all related structures Neck Neck: Yes normal visual inspection and Yes trachea midline Chest Chest palpation & inspection: normal inspection of the chest Resp Effort & Inspection: normal respiratory effort and able to speak in complete sentences Cardio Rate: regular rate GI Inspection: Yes normal to inspection General: Yes no CVA tenderness Back/Spine/Pelvis Back: no CVA tenderness Skin General skin exam: no rashes or lesions noted Neuro General: patient oriented x3 Extrem General: Yes normal to inspection Psych Appearance: grossly normal and well kempt Mental Status: mental status grossly normal Speech and movement: Normal speech and movement present and Clear speech present Affect: normal affect Attitude: cooperative Thought process: Normal thought process present Thought content: Normal thought content present Insight: Fair insight present (Psych) Judgement: Fair judgement present (Psych) Results AMB Urinalysis, Automated UA Leukoctes 0 Alfredo/uL Last Edit by Kalpesh [employer] antonio on 01/06/24 13:16 UA Nitrite Last Edit by Kalpesh [employer] anton[employer] on 01/06/24 13:16 UA Urobilinogen 0.2 mg/dL Last Edit by [employer] on 01/06/24 13:16 UA Protein 15 mg/dL Last Edit by [employer] on 01/06/24 13:16 UA pH 6.0 Last Edit by Kalpesh [employer] anton[employer] on 01/06/24 13:16 UA Blood 0 Floyd/uL Last Edit by [employer] on 01/06/24 13:16 UA Specific [place] 1.020 Last Edit by Kalpesh [employer] anton[employer] on 01/06/24 13:16 UA Ketone Last Edit by [employer] on 01/06/24 13:16 UA Bilirubin 0 mg/dL Last Edit by [employer] on 01/06/24 13:16 UA Glucose 0 mg/dL Last Edit by Kalpesh [employer] anton[employer] on 01/06/24 13:16 Results Reviewed Results Reviewed: Laboratory Last Values Urine pH (Auto) 6.0 01/06/24 13:14 Specific [place] (Auto) 1.020 01/06/24 13:14 Urine Protein (Auto) 15 mg/dL 01/06/24 13:14 Glucose (UA)(Auto) 0 mg/dL 01/06/24 13:14 Urine Blood (Auto) 0 Floyd/uL 01/06/24 13:14 Urine Bilirubin (Auto) 0 mg/dL 01/06/24 13:14 Urine Urobilinogen (Auto) 0.2 mg/dL 01/06/24 13:14 Leukocyte Esterase (Auto) 0 Alfredo/uL 01/06/24 13:14 Date of Service: 10/27/23 Procedure(s): US scrotum FINDINGS: RIGHT: Right testicle measures 5.0 x 2.6 x 4.7 cm, volume 32.0 mL. No focal testicular parenchymal lesions are visualized. Spectral Doppler analysis of the arterial and venous flow is normal in the right testis. Diffuse enlargement of the right epididymis relative to the left. 0.8 x 0.5 x 0.6 cm and 0.3 x 0.4 x 0.4 cm cysts in the region of the right epididymis. Right epididymal Doppler flow is normal. Large hydrocele appears complex with scattered internal echoes no varicocele. LEFT: Left testicle measures 5.2 x 2.8 x 4.1 cm, volume 31.1 mL. No focal testicular parenchymal lesions are visualized. Spectral Doppler analysis of the arterial and venous flow is normal in the left testis. Left epididymal head is normal in size. No left hydrocele or varicocele is seen. Left epididymal Doppler flow is normal. IMPRESSION: 1. Large right hydrocele appears complex with scattered internal echoes. 2. Diffuse asymmetric enlargement of the right epididymis relative to the left. 3. There are 0.8 x 0.5 x 0.6 cm and 0.3 x 0.4 0.4 cm cysts in the region of the right epididymis. 4. Urology consultation recommended. Assessment & Plan Assessment & Plan (1) Hydrocele: Code(s): N43.3 - Hydrocele, unspecified Category: Medical (2) Epididymal cyst: Code(s): N50.3 - Cyst of epididymis Category: Medical Plan In office urinalysis results reviewed with the patient today; as noted above. Recent scrotal ultrasound results reviewed with the patient today; as noted above. Discussed further treatment options of epididymal head cyst as well as hydrocele. Discussed at length potential causes of epididymal head cysts as well as hydroceles. Discussed further treatment options to include surveillance monitoring verses surgical intervention; risks and benefits of these interventions were discussed. All questions were answered. Patient otherwise denies any bothersome urinary issues or concerns. He reports be happy with current voiding parameters. Follow-up p.r.n. Orders: Orders AMB Urinalysis Automated Today Z13.9 - Encounter for screening, unspecified Patient Instructions: The patient had an opportunity to ask questions regarding the treatment plan. All questions were answered. Physical exam, labs, and imaging were discussed and reviewed in detail. As well as risks, benefits, and discussion of treatment choices. No major barriers to understanding were identified. The patient expressed understanding and agreement with the above treatment plan. The patient was made aware they should contact our office by phone for worsening of their current condition, the appearance of new symptoms, or with any questions or concerns. Compliance is encouraged with any medications and follow up testing that is ordered. It is a privilege to be allowed the opportunity to participate in? your urological care.? Again, if you have any questions or concerns If you have any questions or concerns please do not hesitate to contact me. The office is [phone]. This note is constructed using voice recognition software. While every effort has been made to ensure accuracy facilities maintenance engineer errors may have been included. Yours sincerely, SOPHIA Nava Coding Level of Care Code New Pt Level 3 (11282) Diagnoses Hydrocele N43.3 Epididymal cyst N50.3
== END 2024-01-06 13:30 | disposition home or self-care (01) ==
PROVIDERS: PCP Nurse Practitioner Family; Visit Provider Nurse Practitioner Family
DX: N43.3 Hydrocele, unspecified (principal); N50.3 Cyst of epididymis; Z13.9 Encounter for screening, unspecified
CPT/HCPCS: 99203

== ENCOUNTER 2024-08-22 08:02 | Outpatient (REF) | payer BC, SELFPAY ==
[2024-08-22 11:25] LABS: Influenza A PCR NEGATIVE (Negative); Influenza B PCR NEGATIVE (Negative); Resp Syncy Virus RNA Qual PCR NEGATIVE (Negative); SARS COV2 PCR INHOUSE NEGATIVE (Negative)
== END 2024-08-22 08:03 | disposition home or self-care (01) ==
LOC: HO.LAB 08:02
PROVIDERS: Physician Assistant; PCP Nurse Practitioner Family
DX: J22 Unspecified acute lower respiratory infection (principal); R09.89 Other specified symptoms and signs involving the circulatory and respiratory systems
CPT/HCPCS: 0241U

== ENCOUNTER 2024-08-22 08:02 | Outpatient (AMB) | payer BC, SELFPAY ==
[2024-08-22 08:12] VITALS: BP 128/90; PULSE 71; TEMP 36.7; O2SAT 98; BMI 30.4
--- NOTE | 2024-08-22 08:12 | AM.OFFWIN_ITS ---
Intake Vital Signs 08/22/24 08:12 Height 6 ft 5 in Weight 256 lb 6 oz BMI 30.4 BP 128/90 H Blood Pressure Location Lt brachial Position Sitting Pulse 71 Pulse Source Pulse Oximeter Temp 98.1 F Temp Source Oral Pulse Oximetry (%) 98 Intake Visit Reasons: EP Chest congestion, SOB Intake Note: pt is here for chest congestion with difficulty breathing Patient Tobacco Use Status: Never used Tobacco Accompanied by: Self / Same As Patient Allergies morphine Allergy (Unknown, Verified 08/22/24 08:12) stomach pain and cramping penicillin V Allergy (Unknown, Verified 08/22/24 08:12) hives Penicillins Allergy (Unknown, Verified 08/22/24 08:12) UNKNOWN-REACTION A CHILD hydromorphone [Dilaudid] Adverse Reaction (Unknown, Verified 08/22/24 08:12) migranies Do you need a note to return to daycare/school/sports/work: No HPI HPI Comments History of Present Illness Details History - The patient is a 58-year-old male pres enting with worsening shortness of breath and wheezing for a few days. - The patient experienced significant br eathing trouble earlier this morning, which has slightly improved since. - Usage of an albuterol inhaler provided minimal relief. - Asthma and sarcoidosis are part of the patient's medical history, with the latter known to flare under certain conditions. - Symptoms began a few days ago but esca lated significantly this morning. - The patient denies fever, sinus or ear pain, and head congestion, and has not tested for COVID-19 at home. - Night-time coughing has disrupted slee p over the past few nights. Physical Exam General: Cooperative, healthy appearing, comfortable and no acute distress Orientation/consciousness: Patient oriented x3 Limitations: No limitations Head: Normal to inspection Ears: Hearing grossly normal bilaterally, external ears normal and TM's normal bilaterally Nose: Normal external nose present, Normal nares present and No nasal discharge present Face and sinus: Normal facial exam and Yes sinuses nontender Mouth: Normal oral and palatal mucosa present and moist mucous membranes Throat: Yes tonsils normal, Yes uvula midline. Posterior oropharynx erythema Eyes: Appearance normal, both eyes and all related structures Neck: Normal visual inspection Respiratory: exp wheezes throughout. Normal respiratory effort, able to speak in complete sentences, Actively coughing, no respiratory distress, not tachypneic, no tripod positioning and no use of accessory muscles. Cardiovascular: Regular rate and rhythm. Normal S1 and S2 Skin: No rashes or lesions noted Neuro: Patient oriented x3 Extremities: Normal to inspection and Yes no clubbing, cyanosis or edema PFSH Medical History Diverticulitis Gilbert's syndrome Villous adenoma of rectum VALENTINE (obstructive sleep apnea) Sarcoidosis GERD (gastroesophageal reflux disease) Hearing loss Surgical History H/O colonoscopy S/P tendon repair History of colon resection Family History Father Colon cancer Social History Housing: House Are you a primary customer care associate to a significant other at home: No Do you presently have visiting nurse or other home services: No Alcohol intake: current Alcohol intake frequency: a few times a month Patient Tobacco Use Status: Never used Tobacco e-Cigarette/Vaping Use: Never Used Second Hand Smoke Exposure: No service: No Current occupational status: employed Current occupation: [employer] Current occupational exposures/hazards: Yes Cognitive needs: No Hearing needs: No Vision needs: No Review of Systems Const All systems reviewed & are unremarkable except as noted in HPI and below Physical Exam Vital Signs: Last Vital Signs Temp 98.1 F 08/22/24 08:12 Pulse 71 08/22/24 08:12 BP 128/90 H 08/22/24 08:12 Pulse Ox 98 08/22/24 08:12 BMI result Body Mass Index 30.4 Assessment & Plan Assessment & Plan (1) Lower respiratory infection (e.g., bronchitis, pneumonia, pneumonitis, pulmonitis): Code(s): J22 - Unspecified acute lower respiratory infection Plan: VSS, pt well appearing and PE remarkable for exp wheezes on exam. During this visit, I will conduct tests for influenza, COVID-19, and RSV due to the pat ient's respiratory symptoms. Given the difficulty breathing and wheezing observed, I have prescribed a course of SoluMedrol, directing the patient to take all doses for the day in the morning to ensure effectiveness. Should the tests confirm COVID-19, Paxlovid may be considered, although I advised the patient of the potential side effects of this treatment. For symptomatic relief of nocturnal cough, I have prescribed Tessalon Perles. The prescribed medications will be filled at the specified pharmacy, and future treatment plans will be adjusted based on testing outcomes. Patient was informed and verbally consented to the use of an ambient scribe for clinic note documentation during this visit Orders: Orders SARS-CoV2/FLU/RSV Today R09.89 - Other specified symptoms and signs involving the circulatory and respiratory systems Medications: New methylprednisolone PO PER PKG DIR for 6 days 21 ea 0RF benzonatate 200 mg PO BEDTIME PRN 10 caps 0RF cough Coding Level of Care Code Est Pt Level 3 (70766) Diagnoses Lower respiratory infection (e.g., bronchitis, pneumonia, pneumonitis, pulmonitis) J22
--- OUTSIDE RECORDS SUMMARY | 2024-08-22 08:15 | XMS_ITS | Clinical Summary ---
Author Organization [facility] it Address [address] [place] [address] Care Team Providers Care Museum Technician Name Role Phone Rishabh Reyes MD Primary Care Provider [phone] Allergies Active Allergy Reactions Criticality Noted Date Comments Hydromorphone Hcl 09/09/2012 Extremely painful abdominal cramps Lisinopril 09/21/2016 cough Morphine Sulfate Headache 10/21/2011 Penicillins 10/21/2011 Not sure of side effect, been allergic since he was 6 yrs old Medications albuterol HFA (ProAir HFA) 90 mcg/actuation inhaler INHALE 2 PUFFS INTO THE LUNGS 4 TIMES DAILY NEEDED FOR COUGH, WHEEZING OR SHORTNESS OF BREATH. 9 Active citalopram (CeleXA) 20 mg tablet TAKE 1 TABLET BY MOUTH EVERY DAY 9 Active fluticasone HFA (Flovent HFA) 110 mcg/actuation inhaler INHALE 1 PUFF INTO THE LUNGS 2 TIMES DAILY 8 Active fluticasone propionate (FLONASE) 50 mcg/actuation nasal spray instill 2 sprays into each nostril once daily 9 Active ipratropium-alb uteroL (DUONEB) 0.5-2.5 mg/3 mL nebulizer solution Inhale 3 mL into the lungs once for 1 dose. 8 Active losartan (COZAAR) 50 mg tablet TAKE 1 TABLET BY MOUTH EVERY DAY 9 Active omeprazole (PriLOSEC) [address] capsule TAKE 1 CAPSULE BY MOUTH EVERY DAY 9 Active miscellaneous medical supply misc 1 Units by Does not apply route daily. 8 Active miscellaneous medical supply misc Inhale into the lungs at bedtime. Life supply-pressur e 10-20 Active Active Problems Problem Noted Date Diagnosed Date Overweight 11/15/2017 Mild pulmonary hypertension 09/30/2017 Pulmonary nodules 09/30/2017 Essential hypertension 08/19/2016 Anxiety 02/26/2016 Depression 02/26/2016 Sarcoidosis 07/02/2015 Obstructive sleep apnea 02/08/2015 Incisional hernia 07/17/2013 Villous adenoma of rectum 03/25/2012 Hyperplastic colon polyp 02/26/2012 GERD (gastroesophageal reflux disease) 2 Immunizations Name Administration Dates Next Due Influenza trivalent, with pr eservative (Fluzone; Afluria) 6mo and older 02/26/2016,04/02/2014,04/07/2013,02/25 Pneumococcal polysaccharide 23 valent (Pneumovax 23) 2yo and older 12/23/2016 Tdap Tetanus diptheria acell ular pertussis (Boostrix; Adacel) 7yo and older 02/26/2012 Surgical History Surgery Date Site/Laterality Comments OTHER SURGICAL HISTORY PROCEDURE: NE OPEN TX TRANS-SCAPHOPERILUNAR FRACTURE DISLC HERNIA REPAIR PROCEDURE: REPAIR INGUINAL HERNIA; COMMENT: left COLONOSCOPY 01/04/2012 PROCEDURE: HISTORICAL COLONOSCOPY; COMMENT: large sessile rectal lesion and 12 mm polyp at 25 cm. Polyp=hyperplastic; rectal=tubulovillous. 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 01/04/2012 DX:Benign neoplasm of rectum and anal canal Benign neoplasm of colon 01/04/2012 DX:Kel gn neoplasm of colon Diverticulitis of colon with perforation 10/13/2011 DX:Diverticulitis of colon w ith perforation Colon polyp 02/26/2012 DX:Colon polyp Historical Medical DX 09/26/2012 DX:Pulmona ry nodule Family History Medical History Relation Name Comments Diabetes Father at age 50' Other: aortic dissection Mother no aneurysm, pt not sure Relation Name Status Comments Father Mother Social History Tobacco Use Types Packs/Day Years Used Date Smoking Tobacco: Never Smokeless Tobacco: Never Alcohol Use Standard Drinks/Week Comments Yes 0 (1 standard drink = 0.6 oz pur e alcohol) Sex and Gender Information Value Date Recorded Sex Assigned at Not on file Legal Sex Male 5:18 AM EST Gender Identity Not on file Sexual Orientation Not on file Obstetrics History Plan of Treatment Health Maintenance Due Date Last Done Comments Hepatitis B Vaccines (1 of 3 - 19+ 3-dose series) 12/24/1986 Pneumococcal Vaccine: 50+ Years (2 of 2 - PCV) 12/24/2017 12/23/2016 Zoster Vaccines (1 of 2) 12/24/2017 DTaP,Tdap,and Td Vaccines (2 - Td or Tdap) 02/25/2022 02/26/2012 Cholesterol Screening (Lipid Panel) 05/03/2022 06/20/2016 Colorectal Cancer Screening: Colonoscopy 05/03/2022 08/07/2016 Depression Screening 05/03/2022 HIV Screening 05/03/2022 Hepatitis C Screening 05/03/2022 Social Influencers of Health Screening 05/03/2022 Hypertension/CHF/CAD Annual BMP Blood Test 05/15/2022 10/19/2017 COVID-19 Vaccine ( season) 2024 Influenza Vaccine (#1) 2024 6, 04/02/2014, 04/07/2013, Additional history exists Pneumococcal Vaccine: Pediatrics (0 to 5 Years) and At-Risk Patients (6 to 64 Years) Aged Out 12/23/2016 No longer eligible based on patient's age to complete this topic HIB Vaccines Aged Out No longer eligi ble based on patient's age to complete this topic HPV Vaccines Aged Out No longer eligi ble based on patient's age to complete this topic Hepatitis A Vaccines Aged Out No long er eligible based on patient's age to complete this topic IPV Vaccines Aged Out No longer eligi ble based on patient's age to complete this topic MMR Vaccines Aged Out No longer eligi ble based on patient's age to complete this topic Meningococcal ACWY Vaccine Aged Out N o longer eligible based on patient's age to complete this topic Meningococcal B Vacine Aged Out No lo nger eligible based on patient's age to complete this topic RSV Immunization Patients Under 20 months Aged Out No longer eligible based on patient's age to complete this topic Varicella Vaccines Aged Out No longer eligible based on patient's age to complete this topic Procedures Procedure Name Priority Date/Time Associated Diagnosis Comments ANNUAL BMP BLOOD TEST Routine 10/19/2017 COLONOSCOPY Routine 08/07/2016 LIPID PANEL Routine 06/20/2016 from Last 3 Months or Most Recently Relevant to Health Maintenance Results * Annual BMP Blood Test (10/19/2017) Annual BMP Blood Test abstracted [facility] Provider HEALTH MAINTENANCE Final Result * Colonoscopy (08/07/2016) Colonoscopy no interpretation , abstracted Anatomical Region Laterality Modality Other [facility] Provider HEALTH MAINTENANCE Final Result * (ABNORMAL) Lipid panel (06/20/2016) LDL/HDL Ratio 5(A) 0 - 4 Triglycerides 122 0 - 150 mg/dL Cholesterol 195 0 - 200 mg/dL HDL 41 >=40 mg/dL LDL Cholesterol 130(A) 0 - 100 mg/dL Blood Venous blood specimen / Unknown [facility] Provider LAB BLOOD ORDERABLES Twila l Result from Last 3 Months or Most Recently Relevant to Health Maintenance Care Teams Museum Technician Relationship Specialty Start Date End Date Rishabh Reyes MD [address] [place] [address] PCP - General Internal Medicine 10/14/11
== END 2024-08-22 09:31 | disposition home or self-care (01) ==
PROVIDERS: PCP Nurse Practitioner Family; Visit Provider Physician Assistant
DX: J22 Unspecified acute lower respiratory infection (principal)

== ENCOUNTER 2024-09-04 08:02 | Outpatient (REF) | payer BC, SELFPAY ==
--- NOTE | ~2024-09-04 | XR_ITS ---
EXAMINATION: XR CHEST CLINICAL INFORMATION: R05.1 - Acute cough COMPARISON: May 12, 2023 TECHNIQUE: 2 views of the chest were obtained. FINDINGS: No consolidation, pleural effusion or pneumothorax. Cardiomediastinal silhouette size is normal. Mild multilevel thoracic and upper lumbar spondylosis. XR/XR chest 2V IMPRESSION: No acute airspace disease. Electronically signed by: Jonathan Navarro MD 09/04/2024 09:06 AM EDT
--- OUTSIDE RECORDS SUMMARY | 2024-09-04 09:18 | XMS_ITS | Clinical Summary ---
Author Organization [facility] it Address [address] [place] [address] Care Team Providers Care Assistant Financial Accountant Name Role Phone Rishabh Reyes MD Primary Care Provider [phone] Allergies Active Allergy Reactions Criticality Noted Date [...] Date Site/Laterality Comments OTHER SURGICAL HISTORY PROCEDURE: MN OPEN TX TRANS-SCAPHOPERILUNAR FRACTURE DISLC HERNIA REPAIR PROCEDURE: REPAIR INGUINAL HERNIA; COMMENT: left COLONOSCOPY 01/04/2012 PROCEDURE: HISTORICAL COLONOSCOPY; COMMENT: large sessile rectal lesion and 12 mm polyp at 25 cm. Polyp=hyperplastic; rectal=tubulovillous. OTHER SURGICAL HISTORY 2012 PROCEDURE: MN COLOSTOMY/SKIN LEVEL CECOSTOMY; COMMENT: sigmoid colectomy for diverticulitis OTHER SURGICAL HISTORY 2012 PROCEDURE: MN CLOSURE ENTEROSTOMY LG/SMALL INTESTINE; COMMENT: close colostomy [...] Test (10/19/2017) Annual BMP Blood Test abstracted [facility] Provider HEALTH MAINTENANCE Final Result * Colonoscopy (08/07/2016) Colonoscopy no interpretation , abstracted Anatomical Region Laterality Modality Other [facility] Provider HEALTH MAINTENANCE Final Result * (ABNORMAL) Lipid panel (06/20/2016) LDL/HDL Ratio 5(A) 0 - 4 Triglycerides 122 0 - 150 mg/dL Cholesterol 195 0 - 200 mg/dL HDL 41 >=40 mg/dL LDL Cholesterol 130(A) 0 - 100 mg/dL Blood Venous blood specimen / Unknown [facility] Provider LAB BLOOD ORDERABLES Twila l Result from Last 3 Months or Most Recently Relevant to Health Maintenance Care Teams Assistant Financial Accountant Relationship Specialty Start Date End Date Rishabh Reyes MD [address] [place] [address] PCP - General Internal Medicine 10/14/11
== END 2024-09-04 08:03 | disposition home or self-care (01) ==
LOC: HO.HMGCX 08:02
PROVIDERS: PCP Nurse Practitioner Family; Visit Provider Nurse Practitioner Family
DX: R05.1 Acute cough (principal)
CPT/HCPCS: 71046

== ENCOUNTER 2024-09-04 08:02 | Outpatient (AMB) | payer BC, SELFPAY ==
[2024-09-04 08:07] VITALS: BP 120/84; PULSE 92; TEMP 36.4; O2SAT 97
--- NOTE | 2024-09-04 08:07 | MHC.OFFWIV ---
Intake Vital Signs 09/04/24 08:07 Weight 256 lb BP 120/84 Blood Pressure Location Rt brachial Position Sitting Pulse 92 Pulse Source Pulse Oximeter Temp 97.6 F Temp Source Oral Pulse Oximetry (%) 97 Oxygen Delivery Method Room Air Intake Visit Reasons: EP SOB, cough, mucus, Diff breathing Intake Note: Patient here for SOB, cough and difficulty breathing that started up again this morning. Patient Tobacco Use Status: Never used Tobacco Allergies morphine Allergy (Unknown, Verified 09/04/24 08:16) stomach pain and cramping penicillin V Allergy (Unknown, Verified 09/04/24 08:16) hives Penicillins Allergy (Unknown, Verified 09/04/24 08:16) UNKNOWN-REACTION A CHILD hydromorphone [Dilaudid] Adverse Reaction (Unknown, Verified 09/04/24 08:16) migranies Do you need a note to return to daycare/school/sports/work: Yes HPI HPI Comments History of Present Illness Details 58 y/o male patient who presents to the walk in clinic with c/o Cough, SOB, and difficulty breathing since this morning. [facility] Medical History Diverticulitis Gilbert's syndrome Villous adenoma of rectum VALENTINE (obstructive sleep apnea) Sarcoidosis GERD (gastroesophageal reflux disease) Hearing loss Surgical History H/O colonoscopy S/P tendon repair History of colon resection Family History Father Colon cancer Social History Housing: House Are you a primary morning caregiver to a significant other at home: No Do you presently have visiting nurse or other home services: No Alcohol intake: current Alcohol intake frequency: a few times a month Patient Tobacco Use Status: Never used Tobacco e-Cigarette/Vaping Use: Never Used Second Hand Smoke Exposure: No service: No Current occupational status: employed Current occupation: [employer] Current occupational exposures/hazards: Yes Cognitive needs: No Hearing needs: No Vision needs: No Review of Systems Const All systems reviewed & are unremarkable except as noted in HPI and below Physical Exam Vital Signs: Last Vital Signs Temp 97.6 F 09/04/24 08:07 Pulse 92 09/04/24 08:07 BP 120/84 09/04/24 08:07 Pulse Ox 97 09/04/24 08:07 Oxygen Delivery Method Room Air 09/04/24 08:07 Const General: no acute distress Nutritional Appearance: overweight Orientation/consciousness: patient oriented x3 Resp Effort & Inspection: normal respiratory effort and able to speak in complete sentences Auscultation: clear to auscultation bilaterally, no crackles, no rales, no rhonchi and no wheezes Cardio Heart sounds: S1 normal heart sound present and S2 normal heart sound present Neuro General: patient oriented x3 Assessment & Plan Assessment & Plan (1) Cough: Code(s): R05.9 - Cough, unspecified Qualifiers: Cough type: acute Qualified Code(s): R05.1 - Acute cough Plan: Ordered Chest Xray Orders: Orders XR chest 2V Today R05.1 - Acute cough Coding Level of Care Code Est Pt Level 4 (15591) Diagnoses Acute cough R05.1 Cough type: acute Time Spent (min) 20
--- OUTSIDE RECORDS SUMMARY | 2024-09-04 08:10 | XMS_ITS | Clinical Summary ---
Author Organization [facility] it Address [address] [place] [address] Care Team Providers Care System Support Analyst Name Role Phone Rishabh Reyes MD Primary Care Provider [phone] Allergies Active Allergy Reactions Criticality Noted Date [...] Date Site/Laterality Comments OTHER SURGICAL HISTORY PROCEDURE: AL OPEN TX TRANS-SCAPHOPERILUNAR FRACTURE DISLC HERNIA REPAIR PROCEDURE: REPAIR INGUINAL HERNIA; COMMENT: left COLONOSCOPY 01/04/2012 PROCEDURE: HISTORICAL COLONOSCOPY; COMMENT: large sessile rectal lesion and 12 mm polyp at 25 cm. Polyp=hyperplastic; rectal=tubulovillous. OTHER SURGICAL HISTORY 2012 PROCEDURE: AL COLOSTOMY/SKIN LEVEL CECOSTOMY; COMMENT: sigmoid colectomy for diverticulitis OTHER SURGICAL HISTORY 2012 PROCEDURE: AL CLOSURE ENTEROSTOMY LG/SMALL INTESTINE; COMMENT: close colostomy [...] Test (10/19/2017) Annual BMP Blood Test abstracted [facility] Provider HEALTH MAINTENANCE Final Result * Colonoscopy (08/07/2016) Colonoscopy no interpretation , abstracted Anatomical Region Laterality Modality Other [facility] Provider HEALTH MAINTENANCE Final Result * (ABNORMAL) Lipid panel (06/20/2016) LDL/HDL Ratio 5(A) 0 - 4 Triglycerides 122 0 - 150 mg/dL Cholesterol 195 0 - 200 mg/dL HDL 41 >=40 mg/dL LDL Cholesterol 130(A) 0 - 100 mg/dL Blood Venous blood specimen / Unknown [facility] Provider LAB BLOOD ORDERABLES Twila l Result from Last 3 Months or Most Recently Relevant to Health Maintenance Care Teams System Support Analyst Relationship Specialty Start Date End Date Rishabh Reyes MD [address] [place] [address] PCP - General Internal Medicine 10/14/11
== END 2024-09-04 08:49 | disposition home or self-care (01) ==
PROVIDERS: PCP Nurse Practitioner Family; Visit Provider Nurse Practitioner Family
DX: R05.1 Acute cough (principal)

== ENCOUNTER → 2024-09-04 08:44 | Outpatient (BNV) | payer BC, SELFPAY | PROVIDERS: PCP Nurse Practitioner Family; Visit Provider Radiology Diagnostic Radiology | DX: R05.1 Acute cough (principal) | CPT/HCPCS: 71046 ==

== ENCOUNTER 2024-09-22 08:00 | Outpatient (AMB) | payer BC, SELFPAY ==
--- NOTE | 2024-09-22 08:04 | AM.OFFWIN_ITS ---
Intake Vital Signs 09/22/24 08:09 Weight 255 lb BP 142/90 H Blood Pressure Location Rt brachial Position Sitting Pulse 79 Pulse Source Pulse Oximeter Temp 97.8 F Temp Source Oral Pulse Oximetry (%) 94 Oxygen Delivery Method Room Air Intake Visit Reasons: EP-sob Patient Tobacco Use Status: Never used Tobacco Allergies morphine Allergy (Unknown, Verified 09/04/24 08:16) stomach pain and cramping penicillin V Allergy (Unknown, Verified 09/04/24 08:16) hives Penicillins Allergy (Unknown, Verified 09/04/24 08:16) UNKNOWN-REACTION A CHILD hydromorphone [Dilaudid] Adverse Reaction (Unknown, Verified 09/04/24 08:16) migranies HPI HPI Comments History of Present Illness Details History - The patient is a 58-year-old male pres enting with difficulty breathing x 2days. - This condition has worsened since yest and is attributed to his underlying sarcoidosis exacerbated by seasonal allergies, particularly in conditions of high pollen. - The patient reports significant diffic ulty breathing, worsened with exposure to allergens. - He is on inhaled maintenance therapies , including different strengths of Advair, and uses albuterol during flares. - The patient reports using albuterol mo re frequently as of yesterday. - Accompanying symptoms include congesti on, coughing, and headaches, though fever, ear pain or sinus pain is denied. - He does not take an oral allergy medic ation but uses Flonase regularly. Physical Exam General: Cooperative, healthy appearing, comfortable and no acute distress Orientation/consciousness: Patient oriented x3 Limitations: No limitations Head: Normal to inspection Ears: Hearing grossly normal bilaterally, external ears normal and TM's normal bilaterally Nose: Normal external nose present, Normal nares present and No nasal discharge present Face and sinus: Normal facial exam and Yes sinuses nontender Mouth: Normal oral and palatal mucosa present and moist mucous membranes Throat: Yes tonsils normal, Yes uvula midline. Posterior oropharynx erythema Eyes: Appearance normal, both eyes and all related structures Neck: Normal visual inspection Respiratory: insp/exp wheezing. Clear to auscultation bilaterally. Normal respiratory effort, able to speak in complete sentences, Actively coughing, no respiratory distress, not tachypneic, no tripod positioning and no use of accessory muscles Cardiovascular: Regular rate and rhythm. Normal S1 and S2 Skin: No rashes or lesions noted Neuro: Patient oriented x3 Extremities: Normal to inspection and Yes no clubbing, cyanosis or edema PFSH Medical History Diverticulitis Gilbert's syndrome Villous adenoma of rectum VALENTINE (obstructive sleep apnea) Sarcoidosis GERD (gastroesophageal reflux disease) Hearing loss Surgical History H/O colonoscopy S/P tendon repair History of colon resection Family History Father Colon cancer Social History Housing: House Are you a primary clinical care manager to a significant other at home: No Do you presently have visiting nurse or other home services: No Alcohol intake: current Alcohol intake frequency: a few times a month Patient Tobacco Use Status: Never used Tobacco e-Cigarette/Vaping Use: Never Used Second Hand Smoke Exposure: No service: No Current occupational status: employed Current occupation: [employer] Current occupational exposures/hazards: Yes Cognitive needs: No Hearing needs: No Vision needs: No Review of Systems Const All systems reviewed & are unremarkable except as noted in HPI and below Physical Exam Vital Signs: Last Vital Signs Temp 97.8 F 09/22/24 08:09 Pulse 79 09/22/24 08:09 BP 142/90 H 09/22/24 08:09 Pulse Ox 94 09/22/24 08:09 Oxygen Delivery Method Room Air 09/22/24 08:09 Office Procedures Nebulizer Treatment Nebulizer Treatment 09911-Lftufcqrz/MDI RX initial, or Nebulizer Subsequent Treatment Office Meds ipratropium 0.5 mg-albuterol 3 mg (2.5 mg base)/3 mL nebulization soln Performing Provider: Ashley Polk PA-C Performing Location: [facility] Administered by: Ashley Polk PA-C on 09/22/24 08:22 Dose Route Admin Location Dispensed Lot Number Expiration Date NDC Bridge Operator 3 mL inhalation 3 mL [id number] 07/28/25 Assessment & Plan Assessment & Plan (1) Asthma exacerbation, mild: Code(s): J45.901 - Unspecified asthma with (acute) exacerbation Plan: O2 sat low at 92%, pt well appearing and PE remarkable for insp/exp wheezes. To address the patient's exacerbated sarcoidosis due to seasonal allergies, I proceeded with a nebulizer treatment on-site to alleviate acute wheezing. Patient with relief of sob s/p nebulizer. A prescription 12 day pred taper was ordered to manage airway inflammation robustly. The importance of continuing c urrent inhalation therapy, including albuterol for urgent relief, was reiterated. Messaged PCP to request a nebulizer machine for future management. I recommended adding an oral antihistamine to improve symptomatic control alongside existing Flonase use. The patient was informed of the focus on managing this acute allergic component in relationship to his sarcoidosis, without evidence suggesting an infectious process at this time. Messaged PCP to get him a neb machine for home use as frequent flares. Patient was informed and verbally consented to the use of an ambient scribe for clinic note documentation during this visit Orders: Orders AMB Nebulizer Treatment Today R06.02 - Shortness of breath Medications: New prednisone see taper instructions; 40 mg Daily x3 days, 30 mg daily x3 days, 20 mg daily x3 days, 10 mg daily x3 days 10 mg PO DIRECTED 30 tabs 0RF Coding Level of Care Code Est Pt Level 4 (94323) Diagnoses Asthma exacerbation, mild J45.901 CPT Codes Nebulizer Treatment - Nebulizer Treatment, initial or subsequent: 80110- Nebulizer/MDI RX initial, or Nebulizer Subsequent Treatment ([id number])
--- OUTSIDE RECORDS SUMMARY | 2024-09-22 08:04 | XMS_ITS | Clinical Summary ---
Author Organization [facility] it Address [address] [place] [address] Care Team Providers Care Web Analyst Name Role Phone Rishabh Reyes MD Primary Care Provider [phone] Allergies Active Allergy Reactions Criticality Noted Date [...] Diagnosed Date Overweight 11/15/2017 Mild pulmonary hypertension (CMS/HCC V24, CMS/HC C V28) 09/30/2017 Pulmonary nodules 09/30/2017 Essential hypertension 08/19/2016 [...] Date Site/Laterality Comments OTHER SURGICAL HISTORY PROCEDURE: NM OPEN TX TRANS-SCAPHOPERILUNAR FRACTURE DISLC HERNIA REPAIR PROCEDURE: REPAIR INGUINAL HERNIA; COMMENT: left COLONOSCOPY 01/04/2012 PROCEDURE: HISTORICAL COLONOSCOPY; COMMENT: large sessile rectal lesion and 12 mm polyp at 25 cm. Polyp=hyperplastic; rectal=tubulovillous. OTHER SURGICAL HISTORY 2012 PROCEDURE: NM COLOSTOMY/SKIN LEVEL CECOSTOMY; COMMENT: sigmoid colectomy for diverticulitis OTHER SURGICAL HISTORY 2012 PROCEDURE: NM CLOSURE ENTEROSTOMY LG/SMALL INTESTINE; COMMENT: close colostomy [...] COVID-19 Vaccine ( season) 2024 Influenza Vaccine (Season Ended) 2025 02/26/2016, 04/02/2014, 04/07/2013, Additional history exists Pneumococcal Vaccine: [...] age to complete this topic Meningococcal B Vaccine Aged Out No l onger eligible based on patient's age to complete [...] Test (10/19/2017) Annual BMP Blood Test abstracted [facility] Provider HEALTH MAINTENANCE Final Result * Colonoscopy (08/07/2016) Colonoscopy no interpretation , abstracted Anatomical Region Laterality Modality Other [facility] Provider HEALTH MAINTENANCE Final Result * (ABNORMAL) Lipid panel (06/20/2016) LDL/HDL Ratio 5(A) 0 - 4 Triglycerides 122 0 - 150 mg/dL Cholesterol 195 0 - 200 mg/dL HDL 41 >=40 mg/dL LDL Cholesterol 130(A) 0 - 100 mg/dL Blood Venous blood specimen / Unknown [facility] Provider LAB BLOOD ORDERABLES Twila l Result from Last 3 Months or Most Recently Relevant to Health Maintenance Care Teams Web Analyst Relationship Specialty Start Date End Date Rishabh Reyes MD [address] [place] [address] PCP - General Internal Medicine 10/14/11
[2024-09-22 08:09] VITALS: BP 142/90; PULSE 79; TEMP 36.6; O2SAT 94
== END 2024-09-22 09:44 | disposition home or self-care (01) ==
PROVIDERS: PCP Nurse Practitioner Family; Visit Provider Physician Assistant
DX: R06.02 Shortness of breath (principal); J45.901 Unspecified asthma with (acute) exacerbation

== ENCOUNTER → 2024-09-22 08:00 | Outpatient (BNVA) | payer BC, SELFPAY | PROVIDERS: PCP Nurse Practitioner Family; Visit Provider Physician Assistant | DX: J45.901 Unspecified asthma with (acute) exacerbation (principal) | CPT/HCPCS: 94640 ==

== ENCOUNTER 2024-09-27 14:57 | Outpatient (AMB) | payer BC, SELFPAY ==
[2024-09-27 15:06] VITALS: BP 146/98; PULSE 71; O2SAT 98
--- NOTE | 2024-09-27 15:06 | A.OFFPC_ITS ---
Vital Signs 09/27/24 15:06 09/27/24 15:41 Height 6 ft 5 in Weight 253 lb 4 oz BMI 30.0 BP 146/98 H 134/88 Blood Pressure Location Lt brachial Lt brachial Position Sitting Sitting Pulse 71 Pulse Source Pulse Oximeter Pulse Oximetry (%) 98 Oxygen Delivery Method Room Air Intake Visit Reasons: Annual PE Allergies morphine Allergy (Unknown, Verified 09/27/24 15:08) stomach pain and cramping penicillin V Allergy (Unknown, Verified 09/27/24 15:08) hives Penicillins Allergy (Unknown, Verified 09/27/24 15:08) UNKNOWN-REACTION A CHILD hydromorphone [Dilaudid] Adverse Reaction (Unknown, Verified 09/27/24 15:08) migranies Medication List - Last Reconciled 09/27/24 by Erik Peck, [facility]- albuterol sulfate 2.5 mg (3 mL) inhalation QID PRN albuterol sulfate 90 mcg/actuation 2 puffs inhalation Q4-6H PRN amlodipine 2.5 mg PO DAILY 90 days citalopram 20 mg PO DAILY 90 days fluticasone propion-salmeterol 115-21 mcg/actuation (Advair HFA) 2 puffs inhalation BID fluticasone propion-salmeterol 232-14 mcg/actuation (AirDuo RespiClick) 1 inh inhalation Q12H fluticasone propionate 50 mcg/actuation 2 sprays intranasal DAILY ibuprofen 800 mg PO Q8H PRN losartan 100 mg PO DAILY montelukast 10 mg PO BEDTIME 30 days nebulizers Updraft every 4-6hrs as needed for shortness of breath, wheezing as directed omeprazole 20 mg PO DAILY prednisone 10 mg PO DIRECTED sildenafil 100 mg PO DAILY PRN 12 days Tobacco use date assessed: 09/27/24 Dental Screening Dental Screen Date: 09/27/24 Did you have a dental visit in the last 12 months?: Yes Did you have a dental problem in the last 6 months where you did not have access to dental care?: No Was dental information given to patient?: Patient has dentist HPI Annual PE HPI Details History of Present Illness The patient is a 58-year-old male presenting with the need for a physical examination and management of allergies and asthma. Previously referred for bronchopulmonary evaluation due to sarcoidosis and asthma, he reports no contact or follow-up. Seasonal allergies exacerbate his condition. He effectively uses albuterol as needed for relief. The patient is due for colon cancer screening, history of asymmetric epididymitis with a right hydrocele, saw urology previously. Declining a digital rectal examination today His history includes hypertension, improved today after resting, and obesity, which remains a health concern. Health Maintenance - Re-referral to pulmonology for sarcoid osis and asthma management - Initiated treatment with cetirizine tw ice daily for allergy management - Prescribed montelukast (Singulair) for nighttime use - Colorectal cancer screening is due: Co lonoscopy recommended - PSA test for prostate screening, decli fan KEYA (Digital Rectal Examination) - Blood pressure monitoring at home with follow-up data submission Social History Review of Systems - Respiratory: Reports exacerbation of a sthma due to allergies - Genitourinary: Denies prostate-related symptoms, mentions prior asymmetric epididymitis and large right hydrocele - Musculoskeletal: Denies new concerns o r symptoms related to testicular issues -denies any cp, SOB, fevers, chills, N/v , abd pain, blood in stool, constipation or diarrhea, denies any si or hi Physical Exam General: Cooperative, healthy appearing, comfortable, no acute distress and well developed Orientation: Patient oriented x3 Limitations: No limitations Head: Normal to inspection Ears: Hearing grossly normal bilaterally Nose: Normal external nose present Face and sinus: Normal facial exam Eyes: Appearance normal, both eyes and all related structures Neck: Normal visual inspection and Yes full ROM Respiratory: Normal respiratory effort and able to speak in complete sentences. faint scattered wheezes Cardiovascular: Regular rate and rhythm. Normal S1 and S2 GI: Normal to inspection. Soft to palpation and nontender Skin: No rashes or lesions noted Neuro: Patient oriented x3 Extremities: Normal to inspection Results - Labs: Recommendation for PSA testing - Test: Colonoscopy recommended for colo n cancer screening Plan A re-referral to pulmonology has been made for comprehensive sarcoidosis and asthma management. Allergy-induced asthma is addressed with cetirizine twice daily and montelukast at night. Continued use of Air Duo with albuterol PRN is advised, pending pulmonology's inhaler preference. I advised a colonoscopy for cancer screening and agreed to proceed with PSA. Home monitoring of blood pressure is encouraged, and results will be shared shortly. Discussion Notes During the consultation, I discussed the importance of managing asthma exacerbated by allergies and reviewed the patient's choice of cetirizine (start 10mg bid) and montelukast. I underlined the necessity of routine health screenings, namely, due colon cancer screening. The re-referral to pulmonology was emphasized for sarcoidosis and asthma management. Home blood pressure monitoring was advised, and we agreed on his involvement in tracking these metrics. CT scan ordered to reassess sarcoidosis Patient Instructions - Take cetirizine twice a day for allerg ies. - Use montelukast (Singulair) at night. - Continue using Air Duo twice daily, ri nse mouth after use. - Use albuterol as needed for asthma fla re-ups. - Home blood pressure monitor and report readings. - Prepare for colonoscopy as per john guerrero. - Proceed with PSA testing for prostate health. - Follow up with pulmonology appointment when scheduled. [facility] Medical History Diverticulitis Gilbert's syndrome Villous adenoma of rectum VALENTINE (obstructive sleep apnea) Sarcoidosis GERD (gastroesophageal reflux disease) Hearing loss Surgical History H/O colonoscopy S/P tendon repair History of colon resection Family History Father Colon cancer Social History Housing: House Are you a primary manager wound care to a significant other at home: No Do you presently have visiting nurse or other home services: No Alcohol intake: current Alcohol intake frequency: a few times a month Patient Tobacco Use Status: Never used Tobacco e-Cigarette/Vaping Use: Never Used Second Hand Smoke Exposure: No service: No Current occupational status: employed Current occupation: [employer] Current occupational exposures/hazards: Yes Cognitive needs: No Hearing needs: No Vision needs: No Questionnaire PHQ-9 Over the last 2 weeks, how often have you been bothered by any of the following problems? 1. Little interest or pleasure in doing things: not at all 2. Feeling down, depressed, or hopeless: not at all 3. Trouble falling or staying asleep, or sleeping too much: not at all 4. Feeling tired or having little energy: not at all 5. Poor appetite or overeating: not at all 6. Feeling bad about yourself - or that you are a failure or have let yourself or your family down: not at all 7. Trouble concentrating on things, such as reading the newspaper or watching television: not at all 8. Moving or speaking so slowly that other people could have noticed. Or the opposite - being so fidgety or restless that you have been moving around a lot more than usual: not at all 9. Thoughts that you would be better off or of hurting yourself in some way: not at all Total score: 0 Depression Screening Interpretation: Negative Depression Screening Done: Yes 52181 - PHQ-9 Billing: Yes Source: Developed by Drs. Mann Lemus, Kerry Sharma, Femi Limon and colleagues, with an educational sadiq from [employer]. Thrive Questionnaire Date Thrive assessed: 09/27/24 I am a: Patient What is your living situation today?: I have a steady place to live Within the past 12 months, did the food you bought not last and you didn't have the money to get more?: Never true Within the past 12 months, did you worry whether your food would run out before you got money to buy more?: Never true Do you have trouble paying for medicines?: No Do you have trouble getting transportation to medical appointments?: No Do you have trouble paying your heating and electricity bill?: No Do you have trouble taking care of your child, family member or friend?: No Do you have trouble with day-to-day activities such as bathing, preparing meals, shopping, managing finances, etc.?: No Are you currently unemployed and looking for a job?: No Are you interested in more education?: No Please select the resources that you would like help with: None Currently or been in a relationship where the following occur: No concerns reported THRIVE Score: 0 AUDIT C Alcohol Use Questionnaire (AUDIT-C) 1. How often do you have a drink containing alcohol?: 2-3 times a week 2. How many drinks containing alcohol do you have on a typical day when you are drinking?: 5 or 6 3. How often do you have six or more drinks on one occasion?: Weekly Total Score: 8 Score Reviewed/Action Taken: Yes EVI-7 AMB Questionnaire EVI-7 Date EVI - 7 assessed: 09/27/24 Feeling nervous, anxious, or on edge: 0 = Not at all Not being able to stop or control worryin = Not at all Worrying too much about different things: 0 = Not at all Trouble relaxin = Not at all Being so restless that it is hard to sit still: 0 = Not at all Becoming easily annoyed or irritable: 0 = Not at all Feeling afraid as if something awful might happen: 0 = Not at all Total EVI-7 score (0-4 normal; 5-9 mild; 10-14 moderate; 15-21 severe): 0 Source: Developed by Drs. Mann Lemus, Kerry Sharma, Femi Limon and colleagues, with an educational sadiq from [employer]. EVI-7 Assessment Billing EVI-7 Assessment Tool: EVI-7 Assessment 71419 Physical exam (Primary Care) Vital Signs: Last Vital Signs Pulse 71 09/27/24 15:06 BP 146/98 H 09/27/24 15:06 Pulse Ox 98 09/27/24 15:06 Oxygen Delivery Method Room Air 09/27/24 15:06 BMI result Body Mass Index 30.0 Tobacco/Smoking Status: Tobacco use Status Tobacco use date assessed 09/27/24 09/27/24 15:10 Patient Tobacco Use Status Never used Tobacco 09/27/24 15:10 e-Cigarette/Vaping Use Never Used 09/27/24 15:10 PHQ-9: PHQ-9 Score PHQ-9: Total score 0 09/27/24 15:32 Depression Screening Interpretation: Negative Thrive Assessment: Date of Thrive Assessment Date Thrive assessed 09/27/24 09/27/24 15:10 Currently or been in a relationship where the following occur: No concerns reported Coding Level of Care Code Est Pt Prev Care 40-64y(70566) Diagnoses Physical exam Z00.00 Screening PSA (prostate specific antigen) Z12.5 Family history of colon cancer Z80.0 Sarcoidosis D86.9 Asthma J45.909 Additional Codes EVI-7 Assessment Billing - EVI-7 Assessment Tool: EVI-7 Assessment 76188 ([id number]) PHQ-9 - 85080 - PHQ-9 Billing: Yes ([id number]) Assessment & Plan Assessment & Plan (1) Physical exam: Code(s): Z00.00 - Encounter for general adult medical examination without abnormal findings Category: Medical (2) Screening PSA (prostate specific antigen): Code(s): Z12.5 - Encounter for screening for malignant neoplasm of prostate Category: Medical (3) Family history of colon cancer: Comment: Father Code(s): Z80.0 - Family history of malignant neoplasm of digestive organs Category: Medical (4) Sarcoidosis: Code(s): D86.9 - Sarcoidosis, unspecified Category: Medical (5) Asthma: Code(s): J45.909 - Unspecified asthma, uncomplicated Category: Medical Plan . Orders: Orders Complete Blood Count Auto Diff Today Z00.00 - Encounter for general adult medical examination without abnormal findings Lipid Panel Today Z00.00 - Encounter for general adult medical examination without abnormal findings PFT pulmonary function test Today J45.909 - Unspecified asthma, uncomplicated Resp Allergy Profile Region I Today J45.909 - Unspecified asthma, uncomplicated Comprehensive [place]. Panel Fast Today Z00.00 - Encounter for general adult medical examination without abnormal findings TSH reflex Free T4 Today Z00.00 - Encounter for general adult medical examination without abnormal findings UA CC w/rflx Micro + Cult Today Z00.00 - Encounter for general adult medical examination without abnormal findings Prostate Specific Antigen Scr Today Z12.5 - Encounter for screening for malignant neoplasm of prostate CT chest w IV con Today D86.9 - Sarcoidosis, unspecified Immunoglobulin E Today J45.909 - Unspecified asthma, uncomplicated Referrals Gastroenterology Referral Z80.0 - Family history of malignant neoplasm of digestive organs Medications: New montelukast 10 mg PO BEDTIME 30 days 30 tabs 3RF Changed From ibuprofen 800 mg PO Q8H PRN 30 tabs 2RF pain To ibuprofen 800 mg PO Q8H 90 days PRN 270 tabs 0RF pain Refilled fluticasone propion-salmeterol 232-14 mcg/actuation (AirDuo RespiClick) 1 inh inhalation Q12H 1 ea 2RF Discontinued fluticasone propion-salmeterol 115-21 mcg/actuation (Advair HFA) Discontinued Reason: Doctor's Order 2 puffs inhalation BID 12 grams 1RF
[2024-09-27 15:41] VITALS: BP 134/88
--- OUTSIDE RECORDS SUMMARY | 2024-09-27 16:02 | XMS_ITS | Clinical Summary ---
Author Organization [facility] it Address [address] [place] [address] Care Team Providers Care Financial Administrator Name Role Phone Rishabh Reyes MD Primary Care Provider [phone] Allergies Active Allergy Reactions Criticality Noted Date [...] Date Site/Laterality Comments OTHER SURGICAL HISTORY PROCEDURE: [place] OPEN TX TRANS-SCAPHOPERILUNAR FRACTURE DISLC HERNIA REPAIR PROCEDURE: REPAIR INGUINAL HERNIA; COMMENT: left COLONOSCOPY 01/04/2012 PROCEDURE: HISTORICAL COLONOSCOPY; COMMENT: large sessile rectal lesion and 12 mm polyp at 25 cm. Polyp=hyperplastic; rectal=tubulovillous. OTHER SURGICAL HISTORY 2012 PROCEDURE: MI COLOSTOMY/SKIN LEVEL CECOSTOMY; COMMENT: sigmoid colectomy for diverticulitis OTHER SURGICAL HISTORY 2012 PROCEDURE: [place] CLOSURE ENTEROSTOMY LG/SMALL INTESTINE; COMMENT: close colostomy [...] (10/19/2017) Annual BMP Blood Test abstracted [facility] Provider HEALTH MAINTENANCE Final Result * Colonoscopy (08/07/2016) Colonoscopy no interpretation , abstracted Anatomical Region Laterality Modality Other [facility] Provider HEALTH MAINTENANCE Final Result * (ABNORMAL) Lipid panel (06/20/2016) LDL/HDL Ratio 5(A) 0 - 4 Triglycerides 122 0 - 150 mg/dL Cholesterol 195 0 - 200 mg/dL HDL 41 >=40 mg/dL LDL Cholesterol 130(A) 0 - 100 mg/dL Blood Venous blood specimen / Unknown [facility] Provider LAB BLOOD ORDERABLES Twila l Result from Last 3 Months or Most Recently Relevant to Health Maintenance Care Teams Financial Administrator Relationship Specialty Start Date End Date Rishabh Reyes MD [address] [place] [address] PCP - General Internal Medicine 10/14/11
== END 2024-09-27 15:58 | disposition home or self-care (01) ==
LOC: HO.HMCC 14:58
PROVIDERS: PCP Nurse Practitioner Family; Visit Provider Nurse Practitioner Family
DX: Z00.00 Encounter for general adult medical examination without abnormal findings (principal); Z12.5 Encounter for screening for malignant neoplasm of prostate; Z80.0 Family history of malignant neoplasm of digestive organs; D86.9 Sarcoidosis, unspecified; J45.909 Unspecified asthma, uncomplicated

== ENCOUNTER → 2024-09-27 14:57 | Outpatient (BNVA) | payer BC, SELFPAY | PROVIDERS: PCP Nurse Practitioner Family; Visit Provider Nurse Practitioner Family | DX: Z00.00 Encounter for general adult medical examination without abnormal findings (principal); D86.9 Sarcoidosis, unspecified; J45.909 Unspecified asthma, uncomplicated; Z80.0 Family history of malignant neoplasm of digestive organs | CPT/HCPCS: 96127 ==

== ENCOUNTER 2024-11-14 15:39 | Outpatient (REF) | payer BC, SELFPAY ==
[2024-11-14 16:17] VITALS: PULSE 73; O2SAT 97
--- NOTE | 2024-11-14 16:18 | PFT_ITS ---
Indication: Asthma Spirometry FEV1 to FVC 61% pre bronchodilators and 67% post bronchodilators; FEV1 3.89 L; FVC 5.78 L. there was a significant response to bronchodilators noted. To note the FEF 10/17/2074 decrease to 45% predicted Lung Volumes Total lung capacity 90% predicted; residual volume 82% predicted Diffusion Capacity DLCO 84% predicted Comparisons None Interpretation There appears to be a partial reversible obstructive ventilatory defect very suspicious for uncontrolled asthma versus asthma COPD overlap syndrome. The patient had did have a significant response to bronchodilators noted. Significant small airways disease likely due to the diagnosis of asthma. Lung volumes are within normal limits. Diffusing capacity also within normal limits. Clinical correlation warranted. MTDD
--- OUTSIDE RECORDS SUMMARY | 2024-11-14 18:07 | XMS_ITS | Clinical Summary ---
Author Organization [facility] it Address [address] [place] [address] Care Team Providers Care Nutritionalist Name Role Phone Rishabh Reyes MD Primary Care Provider [phone] Allergies Active Allergy Reactions Criticality Noted Date [...] Test (10/19/2017) Annual BMP Blood Test abstracted [facility] Provider HEALTH MAINTENANCE Final Result * Colonoscopy (08/07/2016) Colonoscopy no interpretation , abstracted Anatomical Region Laterality Modality Other [facility] Provider HEALTH MAINTENANCE Final Result * (ABNORMAL) Lipid panel (06/20/2016) LDL/HDL Ratio 5(A) 0 - 4 Triglycerides 122 0 - 150 mg/dL Cholesterol 195 0 - 200 mg/dL HDL 41 >=40 mg/dL LDL Cholesterol 130(A) 0 - 100 mg/dL Blood Venous blood specimen / Unknown [facility] Provider LAB BLOOD ORDERABLES Twila l Result from Last 3 Months or Most Recently Relevant to Health Maintenance Care Teams Nutritionalist Relationship Specialty Start Date End Date Rishabh Reyes MD [address] [place] [address] PCP - General Internal Medicine 10/14/11
== END 2024-11-14 15:40 | disposition home or self-care (01) ==
LOC: HO.RESP 15:39
PROVIDERS: PCP Nurse Practitioner Family; Visit Provider Nurse Practitioner Family
DX: J45.909 Unspecified asthma, uncomplicated (principal)
CPT/HCPCS: 94010; 94640; 94727; 94729

== ENCOUNTER → 2024-11-14 16:18 | Outpatient (BNV) | payer BC, SELFPAY | PROVIDERS: PCP Nurse Practitioner Family; Visit Provider Hospitalist | DX: J45.909 Unspecified asthma, uncomplicated (principal) | CPT/HCPCS: 94060; 94727; 94729 ==

== ENCOUNTER 2024-11-30 14:09 | Outpatient (REF) | payer BC, SELFPAY ==
--- NOTE | ~2024-11-30 | CT_ITS ---
CLINICAL HISTORY: D86.9 - Sarcoidosis, unspecified CT chest with contrast Comparison: None provided Findings: The heart size is normal. There are subcentimeter mediastinal lymph nodes. The lungs are clear. There are mild ground-glass and reticular opacities of the bilateral lungs. There are calcified granuloma and tiny nodules. The visualized upper abdomen is unremarkable. The bones are intact. IMPRESSION: No mediastinal lymphadenopathy. Mild fibrotic change of the lung parenchyma and tiny nodules. This document has been electronically signed by: Deisy Landis MD on 12/01/2024 21:42:09
--- OUTSIDE RECORDS SUMMARY | 2024-11-30 14:13 | XMS_ITS | Clinical Summary ---
Author Organization [facility] it Address [address] [place] [address] Care Team Providers Care Soil Conservation Technician Name Role Phone Rishabh Reyes MD Primary Care Provider [phone] Allergies Active Allergy Reactions Criticality Noted Date [...] Date Site/Laterality Comments OTHER SURGICAL HISTORY PROCEDURE: [place] OPEN TX TRANS-SCAPHOPERILUNAR FRACTURE DISLC HERNIA REPAIR PROCEDURE: REPAIR INGUINAL HERNIA; COMMENT: left COLONOSCOPY 01/04/2012 PROCEDURE: HISTORICAL COLONOSCOPY; COMMENT: large sessile rectal lesion and 12 mm polyp at 25 cm. Polyp=hyperplastic; rectal=tubulovillous. OTHER SURGICAL HISTORY 2012 PROCEDURE: RI COLOSTOMY/SKIN LEVEL CECOSTOMY; COMMENT: sigmoid colectomy for diverticulitis OTHER SURGICAL HISTORY 2012 PROCEDURE: [place] CLOSURE ENTEROSTOMY LG/SMALL INTESTINE; COMMENT: close colostomy [...] Test (10/19/2017) Annual BMP Blood Test abstracted [facility] Provider HEALTH MAINTENANCE Final Result * Colonoscopy (08/07/2016) Colonoscopy no interpretation , abstracted Anatomical Region Laterality Modality Other [facility] Provider HEALTH MAINTENANCE Final Result * (ABNORMAL) Lipid panel (06/20/2016) LDL/HDL Ratio 5(A) 0 - 4 Triglycerides 122 0 - 150 mg/dL Cholesterol 195 0 - 200 mg/dL HDL 41 >=40 mg/dL LDL Cholesterol 130(A) 0 - 100 mg/dL Blood Venous blood specimen / Unknown [facility] Provider LAB BLOOD ORDERABLES Twila l Result from Last 3 Months or Most Recently Relevant to Health Maintenance Care Teams Soil Conservation Technician Relationship Specialty Start Date End Date Rishabh Reyes MD [address] [place] [address] PCP - General Internal Medicine 10/14/11
[2024-11-30] MEDS: iohexoL 350 MG/ML 100 ML INFUS..BTL IV (14:40)
[2024-11-30 14:44] LABS: Creatinine POC 0.8 mg/dL (0.5-1.4); GFR POC > 60
== END 2024-11-30 14:10 | disposition home or self-care (01) ==
LOC: HO.CT 14:09
PROVIDERS: PCP Nurse Practitioner Family; Visit Provider Nurse Practitioner Family
DX: D86.9 Sarcoidosis, unspecified (principal)
CPT/HCPCS: 71260; 82565; Q9967

== ENCOUNTER → 2024-11-30 14:11 | Outpatient (BNV) | payer BC, SELFPAY | PROVIDERS: PCP Nurse Practitioner Family; Visit Provider Nuclear Medicine | DX: J84.10 Pulmonary fibrosis, unspecified (principal) | CPT/HCPCS: 71260 ==

== ENCOUNTER 2024-12-20 14:18 | Outpatient (AMB) | payer BC, SELFPAY ==
--- NOTE | 2024-12-20 14:24 | A.OFFVIS_ITS ---
Vital Signs 3 12/20/24 14:25 Height 6 ft 5 in Weight 250 lb 7.122 oz BMI 29.7 BP 154/87 H Blood Pressure Location Lt brachial Position Sitting Pulse 69 Intake Visit Reasons: colo screening Intake Note: Heath presents in office today for pre colonoscopy screening. CC: Luann reports doing well and denies having any GI symptoms or concerns today. Public Health Microbiologist Required: No Accompanied by: Self / Same As Patient Allergies morphine Allergy (Unknown, Verified 12/20/24 14:31) stomach pain and cramping penicillin V Allergy (Unknown, Verified 12/20/24 14:31) hives Penicillins Allergy (Unknown, Verified 12/20/24 14:31) UNKNOWN-REACTION A CHILD hydromorphone (Dilaudid) Adverse Reaction (Unknown, Verified 12/20/24 14:31) migranies HPI HPI colo screening: Details: There are no prior problems with anesthesia or sedation. He has VALENTINE and no cardiac problems. No ID problems. He had TA's in the past and his father had CRC. (2) VALENTINE (obstructive sleep apnea): ?Code(s): G47.33 - Obstructive sleep apnea (adult) (pediatric) (3) Tubular adenoma of colon: ?Comment: On 2016 scope performed at [facility] ?Code(s): D12.6 - Benign neoplasm of colon, unspecified (4) Family history of colon cancer: ?Comment: Father ?Code(s): Z80.0 - Family history of malignant neoplasm of digestive organs ? ? ? Orders: Orders Comprehensive Met. Panel Today Z01.818 - Encounter for other preprocedural examination ? Complete Blood Count Auto Diff Today Z01.818 - Encounter for other preprocedural examination ? Medications: New peg 3350-electrolytes 236-22.74-6.74 -5.86 gram (Golytely) ?? until fecal effluent is clear; do not exceed a total volume of 2,000 mL 240 mL? PO Q10M 1 day 4,000 mL 0RF Z12.11 - Encounter for screening for malignant neoplasm of colon Labs: COLONOSCOPY Findings: Terminal Ileum: Not evaluated Cecum:? Normal Ascending Colon:? A 9-10 mm sessile polyp removed with a hot snare Transverse Colon:? A 10-12 mm sessile polyp in the proximal TC - removed with a hot snare. An 18 to 20 mm sessile polyp in the TC at 80 cms - removed with a hot stiff snare and polypectomy site marked by vicki ink. Descending Colon:? A 2 to 2.5 cms flat polyp at 60 cms.? Polyp was raised with 5 cc of normal saline and removed with a hot stiff snare.? Polypectomy site was marked by Vicki ink. Moderate diverticulosis. Sigmoid Colon:? Moderate diverticulosis Rectum:? Anastomosis seen at 10-12 cms with a 12-15 mm polyp - removed with a hot snare. Ano-rectum:? Moderate internal hemorrhoids Colon preparation:? Good? Impression and Post Procedure Diagnosis: Colonoscopy Findings: Five medium to large sized polyps removed Moderate diverticulosis seen in the left colon Moderate hemorrhoids on retroflexed exam. Plan: Await pathology results Patient has an appointment on 01/15/23 in the [facility] with? Amy Elizondo NP. Repeat Colonoscopy interval based on path results - in 1-2 years if polyps are adenomatous and to check polypectomy sites in the transverse and descending colon. Colon polyps and diverticulosis handouts were given in the discharge area BIOPSIES:??A. ascending colon polyp:??Fragments of tubular adenoma; negative for high-grade dysplasia or carcinoma. ?B. transverse colon polyp ??Fragments of tubular adenoma; negative for high-grade dysplasia or carcinoma. ? C. transverse colon polyp @ 80 cms:??Fragments of tubular adenoma; negative for high-grade dysplasia or carcinoma. ?D. descending colon polyp @ 60 cms:??Hyperplastic mucosal polyp. ?E. rectal polyp:??Hyperplastic mucosal polyp. BIOPSY TODAY'S VISIT He is here today for his repeat colonoscopy based on the size of the polyps. There are no prior problems with anesthesia or sedation. He has VALENTINE and no cardiac problems. He had pneumonia earlier this year per the chart although he denies knowledge of this in his asthma currently is well controlled. No ID problems. He had TA's in the past and his father had CRC PFSH Medical History Diverticulitis Gilbert's syndrome Villous adenoma of rectum VALENTINE (obstructive sleep apnea) Sarcoidosis GERD (gastroesophageal reflux disease) Hearing loss Surgical History H/O colonoscopy S/P tendon repair History of colon resection Family History Father Colon cancer Social History Housing: House Are you a primary rn transitional care to a significant other at home: No Do you presently have visiting nurse or other home services: No Alcohol intake: current Alcohol intake frequency: a few times a month Patient Tobacco Use Status: Never used Tobacco e-Cigarette/Vaping Use: Never Used Second Hand Smoke Exposure: No service: No Current occupational status: employed Current occupation: [employer] Current occupational exposures/hazards: Yes Cognitive needs: No Hearing needs: No Vision needs: No Review of Systems Const Denies fatigue, Denies fever(s), Denies night sweats, Denies poor appetite and Denies weight loss Eyes Details: glasses Reports requires corrective lenses ENT Reports Normal hearing present, Denies dental pain, Denies dysphagia, Denies hearing loss, Denies mouth pain, Denies odynophagia, Denies throat swelling, Denies tongue swelling and Reports other (Dentition adequate) GI Details: Denies abdominal pain, Denies melena, Denies bloating, Denies hematochezia, Denies constipation, Denies GI cramping, Denies dysphagia, Denies excessive flatus, Denies early satiety, Denies heartburn, Denies diarrhea, Denies nausea, Denies odynophagia, Denies vomiting and Denies hematemesis Skin/Breast Denies pruritus, Denies lesions, Denies rash and Denies jaundice Neuro Reports Normal hearing present and Denies Abnormal speech present Endo Denies fatigue Aller/Immun Denies throat swelling and Denies tongue swelling Physical Exam Vital Signs: Last Vital Signs Pulse 69 12/20/24 14:25 BP 154/87 H 12/20/24 14:25 BMI result Body Mass Index 29.7 Const General: cooperative, no acute distress, well developed and well groomed Nutritional Appearance: well nourished, obese and overweight Orientation/consciousness: oriented to person, oriented to place and oriented to time Limitations: No language barrier, ambulation with cane, ambulation with walker and wheelchair HEENT Head: Yes normocephalic and Yes atraumatic Eyes General: appearance normal, both eyes and all related structures Pupils: Equal, round and reactive pupils present Neck Neck: Yes normal visual inspection and Yes no lymphadenopathy Thyroid: Thyroid normal Resp Effort & Inspection: normal respiratory effort and able to speak in complete sentences Auscultation: clear to auscultation bilaterally Cardio Rate: regular rate Rhythm: regular rhythm Heart sounds: Normal, physiologic split S2 sound present Peripheral pulses: radial pulses present and posterior tibial pulses present GI Inspection: No distended, No Abdominal panniculus present and Yes obesity Palpation (GI): Soft to palpation, nontender, no guarding, not rigid and No hepatosplenomegaly present Percussion: Yes normal to percussion Auscultation: normal bowel sounds Rectal Exam - Male: Yes deferred Abdomen image: 2 1. surgical scar Skin General skin exam: no rashes or lesions noted, turgor normal, skin not dry, no jaundice, No spider nevi and no striae Rashes: no rashes Nails: normal Neuro General: oriented to person, oriented to place and oriented to time Cranial nerves: Yes Equal, round and reactive pupils present and Yes Normal hearing present Speech: No Abnormal speech present Extrem Other: tattoos on arm General: Yes normal to inspection, No clubbing, No cyanosis and No edema Psych Appearance: grossly normal and well kempt Mental Status: mental status grossly normal Speech and movement: Normal speech and movement present Affect: normal affect Attitude: cooperative Thought process: Normal thought process present and not confabulating Thought content: Normal thought content present Insight: Good insight present (Psych) Judgement: Good judgement present (Psych) Assessment & Plan Assessment & Plan (1) VALENTINE (obstructive sleep apnea): Comment: Severe degree of sleep apnea. The AHI was 55/hr and oxygen winnie was 82% Code(s): G47.33 - Obstructive sleep apnea (adult) (pediatric) Category: Medical (2) Pre-op examination: Code(s): Z01.818 - Encounter for other preprocedural examination Category: Medical (3) Tubular adenoma of colon: Comment: 2022 scope = 3 >1cm sessile polyps repeat 1-2 years; 2017 scope performed at [facility] Code(s): D12.6 - Benign neoplasm of colon, unspecified Category: Medical (4) Family history of colon cancer: Comment: Father Code(s): Z80.0 - Family history of malignant neoplasm of digestive organs Category: Medical Plan He is here today for his repeat colonoscopy based on the size of the polyps. There are no prior problems with anesthesia or sedation. He has VALENTINE and no cardiac problems. He had pneumonia earlier this year per the chart although he denies knowledge of this in his asthma currently is well controlled. No ID problems. He had TA's in the past and his father had CRC Orders: Orders 2 Comprehensive Met. Panel Today D12.6 - Benign neoplasm of colon, unspecified, G47.33 - Obstructive sleep apnea (adult) (pediatric), Z01.818 - Encounter for other preprocedural examination, Z80.0 - Family history of malignant neoplasm of digestive organs Complete Blood Count Auto Diff Today D12.6 - Benign neoplasm of colon, unspecified, G47.33 - Obstructive sleep apnea (adult) (pediatric), Z01.818 - Encounter for other preprocedural examination, Z80.0 - Family history of malignant neoplasm of digestive organs Colonoscopy - GI Use Only Today D12.6 - Benign neoplasm of colon, unspecified, G47.33 - Obstructive sleep apnea (adult) (pediatric), Z01.818 - Encounter for other preprocedural examination, Z80.0 - Family history of malignant neoplasm of digestive organs Medications: New 2 peg 3350-electrolytes 236-22.74-6.74 -5.86 gram (Golytely) until fecal effluent is clear; do not exceed a total volume of 2,000 mL 240 mL PO Q10M 4,000 mL 0RF 1 day Z12.11 - Encounter for screening for malignant neoplasm of colon bisacodyl (Dulcolax (bisacodyl)) 10 mg (2 x 5 mg) PO BEDTIME 4 tabs 0RF 2 days Coding Level of Care Code Est Pt Level 4 (40688) Diagnoses VALENTINE (obstructive sleep apnea) G47.33 Pre-op examination Z01.818 Tubular adenoma of colon D12.6 Family history of colon cancer Z80.0
[2024-12-20 14:25] VITALS: BP 154/87; PULSE 69; BMI 29.7
--- OUTSIDE RECORDS SUMMARY | 2024-12-20 14:59 | XMS_ITS | Clinical Summary ---
Author Organization [facility] it Address [address] [place] [address] Care Team Providers Care Supervisor Grips Name Role Phone Rishabh Reyes MD Primary Care Provider [phone] Allergies Active Allergy Reactions Criticality Noted Date [...] 06/20/2016 Colorectal Cancer Screening: Colonoscopy 05/03/2022 08/07/2016 HIV Screening 05/03/2022 Hepatitis C Screening 05/03/2022 Social Influencers of Health Screening 05/03/2022 Hypertension/CHF/CAD Annual BMP Blood Test 05/15/2022 10/19/2017 COVID-19 Vaccine ( season) 2024 Depression Screening 05/31/2024 Influenza Vaccine (#1) 2025 6, 04/02/2014, 04/07/2013, Additional history exists HIB Vaccines Aged Out No longer eligi [...] Test (10/19/2017) Annual BMP Blood Test abstracted [facility] Provider HEALTH MAINTENANCE Final Result * Colonoscopy (08/07/2016) Pathologist [facility] Colonoscopy no interpretation , abstracted Anatomical Region Laterality Modality Other [facility] Provider HEALTH MAINTENANCE Final Result * (ABNORMAL) Lipid panel (06/20/2016) Pathologist [facility] LDL/HDL Ratio 5(A) 0 - 4 Triglycerides 122 0 - 150 mg/dL Cholesterol 195 0 - 200 mg/dL HDL 41 >=40 mg/dL LDL Cholesterol 130(A) 0 - 100 mg/dL Blood Venous blood specimen / Unknown Historical Provider LAB BLOOD ORDERABLES Twila l Result from Last 3 Months or Most Recently Relevant to Health Maintenance Care Teams Supervisor Grips Relationship Specialty Start Date End Date Rishabh Reyes MD [address] [place] [address] PCP - General Internal Medicine 10/14/11
== END 2024-12-20 14:54 | disposition home or self-care (01) ==
LOC: HO.HGI 14:19
PROVIDERS: PCP Nurse Practitioner Family; Visit Provider Nurse Practitioner
DX: Z01.818 Encounter for other preprocedural examination (principal); Z12.11 Encounter for screening for malignant neoplasm of colon; Z86.0101 Personal history of adenomatous and serrated colon polyps; Z80.0 Family history of malignant neoplasm of digestive organs; G47.33 Obstructive sleep apnea (adult) (pediatric)
CPT/HCPCS: S0285

== ENCOUNTER 2024-12-28 06:39 | Outpatient (REF) | payer BC, SELFPAY ==
[2024-12-28 10:03] LABS: MANUAL DIFF FLAG NO
[2024-12-28 10:14] LABS: Appearance Urine Clear; Glucose Urine UA Negative (Negative); PH 6.0 (5.0-9.0); Specific Gravity - Urine 1.025 (1.005-1.025)
[2024-12-28 10:30] LABS: Hematocrit 44.3 % (42.0-52.0); Hemoglobin 15.0 g/dl (14.0-18.0); Imm Gran Abs Auto 0.02 X10*3/uL (0.00-0.03); Imm Gran Pct Auto 0.4 % (0.0-0.4); Lymphocytes Absolute Auto 0.9 X10*3/uL (1.2-4.9); Mean Corpuscular HGB Conc 33.9 g/dl (31.0-36.0); Mean Corpuscular Hemoglobin 29.4 pg (27.0-33.0); Mean Corpuscular Volume 86.7 fL (80.0-98.0); NRBC Abs Auto 0.000 X10*3/uL (0.0-0.012); NRBC Pct Auto 0.0 /100WBC (0.0-0.2); Platelet Count 152 X10*3/uL (160-400); Red Blood Count 5.11 X10*6/uL (4.60-5.80); White Blood Count 4.6 X10*3/uL (4.8-10.8)
[2024-12-28 10:39] LABS: Alanine Aminotransferase 33 U/L (0-40); Albumin Level 4.4 g/dL (3.5-5.0); Alkaline Phosphatase 85 U/L (39-117); Anion Gap 11 (12-20); Aspartate Amino Transferase 26 U/L (5-37); Blood Urea Nitrogen 22 mg/dL (9-16); Calcium 8.8 mg/dL (8.4-10.2); Carbon Dioxide 25 mmol/L (22-29); Chloride 108 mmol/L (96-108); Cholesterol 183 mg/dL (<200); Estimated Glomerular Filt Rate > 60; HDL Cholesterol 35 mg/dL (>40); Potassium 3.8 mmol/L (3.3-5.1); Sodium 140 mmol/L (135-145); Total Protein 6.9 g/dL (6.5-8.0); Triglycerides 164 mg/dL (<150)
[2024-12-29 15:24] LABS: Class Alternaria alternata 0; Class Aspergillus fumigatus 0; Class Bermuda Grass 0/1; Class Birch 3; Class Cat Dander 0; Class Cladosporium herbarum 0; Class Cockroach 0; Class Common Ragweed 0; Class Cottonwood 0; Class Derm. pterony 0; Class Dermatophagoides farinae 0; Class Dog Dander 0; Class Elm 0; Class Maple Box Elder 0/1; Class Mountain Cedar 0; Class Mouse Urine Protein 0; Class Mugwort 0; Class Oak 3; Class Penicillium crysogenum 0; Class Rough Pigweed 0; Class Sheep Sorrel 0; Class Sycamore 0; Class Timothy Grass 2; Class Walnut Tree 0; Class White Ash 0; Class White Mulberry 0; D002 - IgE D farinae <0.10 kU/L; E001 - IgE Cat Dander <0.10 kU/L; E005 - IgE Dog Dander <0.10 kU/L; G006 - IgE Timothy Grass 2.44 kU/L; I006-IgE Cockroach, German <0.10 kU/L; M002 - IgE Cladosporium herbar <0.10 kU/L; M003 - IgE Aspergillus fumigat <0.10 kU/L; M006 - IgE Alternaria alternat <0.10 kU/L; T001 IgE Maple/Box Elder 0.16 kU/L; T006 - IgE Cedar, Mountain <0.10 kU/L; T007 - IgE Oak, White 4.13 kU/L; T008 IgE Elm, American <0.10 kU/L; T010 - IgE Walnut <0.10 kU/L; T011 - IgE Maple Leaf Sycamore <0.10 kU/L; T014 - IgE Cottonwood <0.10 kU/L; T015 - IgE Ash, White <0.10 kU/L; T070 - IgE White Mulberry <0.10 kU/L; W001 - IgE Ragweed, Short <0.10 kU/L; W006 - IgE Mugwort <0.10 kU/L; W014 IgE Pigweed, Common <0.10 kU/L; W018 IgE Sheep Sorrel <0.10 kU/L
== END 2024-12-28 06:40 | disposition home or self-care (01) ==
LOC: HO.HMGCLDS 06:39
PROVIDERS: PCP Nurse Practitioner Family; Referring Provider Nurse Practitioner; Visit Provider Nurse Practitioner Family
DX: Z00.00 Encounter for general adult medical examination without abnormal findings (principal); Z12.5 Encounter for screening for malignant neoplasm of prostate; Z13.6 Encounter for screening for cardiovascular disorders; J45.909 Unspecified asthma, uncomplicated; Z91.09 Other allergy status, other than to drugs and biological substances
CPT/HCPCS: 36415; 80053; 80061; 81003; 82785; 84153; 84443; 85025; 86003

== ENCOUNTER 2025-01-01 14:41 | Outpatient (AMB) | payer BC, SELFPAY ==
--- OUTSIDE RECORDS SUMMARY | 2025-01-01 14:44 | XMS_ITS | Clinical Summary ---
Author Organization [facility] it Address [address] [place] [address] Care Team Providers Care Director Custom Name Role Phone Rishabh Reyes MD Primary Care Provider Allergies Active Allergy Reactions Criticality Noted Date [...] Date Site/Laterality Comments OTHER SURGICAL HISTORY PROCEDURE: MS OPEN TX TRANS-SCAPHOPERILUNAR FRACTURE DISLC HERNIA REPAIR PROCEDURE: REPAIR INGUINAL HERNIA; COMMENT: left COLONOSCOPY 01/04/2012 PROCEDURE: HISTORICAL COLONOSCOPY; COMMENT: large sessile rectal lesion and 12 mm polyp at 25 cm. Polyp=hyperplastic; rectal=tubulovillous. OTHER SURGICAL HISTORY 2012 PROCEDURE: MS COLOSTOMY/SKIN LEVEL CECOSTOMY; COMMENT: sigmoid colectomy for diverticulitis OTHER SURGICAL HISTORY 2012 PROCEDURE: MS CLOSURE ENTEROSTOMY LG/SMALL INTESTINE; COMMENT: close colostomy [...] Test (10/19/2017) Annual BMP Blood Test abstracted [facility] Provider HEALTH MAINTENANCE Final Result * Colonoscopy (08/07/2016) Pathologist [facility] Colonoscopy no interpretation , abstracted Anatomical Region Laterality Modality Other [facility] Provider HEALTH MAINTENANCE Final Result * (ABNORMAL) Lipid panel (06/20/2016) Pathologist [facility] LDL/HDL Ratio 5(A) 0 - 4 Triglycerides 122 0 - 150 mg/dL Cholesterol 195 0 - 200 mg/dL HDL 41 >=40 mg/dL LDL Cholesterol 130(A) 0 - 100 mg/dL Blood Venous blood specimen / Unknown Historical Provider LAB BLOOD ORDERABLES Twila l Result from Last 3 Months or Most Recently Relevant to Health Maintenance Care Teams Director Custom Relationship Specialty Start Date End Date Rishabh Reyes MD [address] [place] [address] PCP - General Internal Medicine 10/14/11
--- NOTE | 2025-01-01 15:00 | MHC.OFFVIS ---
Vital Signs 01/01/25 15:01 Height 6 ft 5 in Weight 256 lb 13.416 oz BMI 30.5 BP 138/80 Blood Pressure Location Lt brachial Position Sitting Pulse 63 Pulse Source Pulse Oximeter Pulse Oximetry (%) 95 Oxygen Delivery Method Room Air Intake Visit Reasons: Sarcoidosis Leveling Machine Operator Required: No Accompanied by: Self / Same As Patient Allergies morphine Allergy (Unknown, Verified 01/01/25 15:04) stomach pain and cramping penicillin V Allergy (Unknown, Verified 01/01/25 15:04) hives Penicillins Allergy (Unknown, Verified 01/01/25 15:04) UNKNOWN-REACTION A CHILD hydromorphone (Dilaudid) Adverse Reaction (Unknown, Verified 01/01/25 15:04) migranies HPI Comments Details: The patient is here for pulmonary evaluation. The patient is a 59-year-old gentleman with known history of sarcoidosis presenting with worsening respiratory complaints. Apparently the patient was evaluated approximately about 10 years ago at [facility] where he had lymphadenopathy. He states that he had biopsy-proven sarcoidosis through a mediastinoscopy. He does not remember being treated for. Ultimately the patient has been complaining of worsening cough and shortness of breath in addition to nasal congestion. Typically worse in the springtime. He was evaluated with allergy testing and indeed he has significant allergies to the pollen for the trees the springtime. In the meantime the patient also underwent pulmonary function studies. He is a never smoker. However he does have a fixed obstruction with significant response to bronchodilators. I suspect that this is related to uncontrolled asthma. Although endobronchial sarcoid is in the differential this is less likely. He did have a CT scan of the chest more recently 11/2024 which I personally reviewed demonstrating no evidence of any lymphadenopathy and just some minimal pulmonary nodules appreciated in the right upper lobe in addition to some areas of atelectasis and scarring. Likely sequelae of the sarcoid but no evidence of any active disease. For now will go ahead and optimize his respiratory medications and nasal therapy. The patient will be reassess. If the patient continues to be symptomatic he may be a good candidate for biologic therapy with significant eosinophilia. [facility] Medical History (Updated 01/01/25 @ 21:32 by Bernabe De León MD) Chronic allergic rhinitis Physical exam Physical exam Cough Lower respiratory infection (e.g., bronchitis, pneumonia, pneumonitis, pulmonitis) Pneumonia Bronchitis Shortness of breath Asthma exacerbation, mild Exacerbation of asthma Screening PSA (prostate specific antigen) Screening for colon cancer Black tarry stools Elevated liver enzymes Hearing loss Diverticulitis Gilbert's syndrome Villous adenoma of rectum VALENTINE (obstructive sleep apnea) Sarcoidosis GERD (gastroesophageal reflux disease) Surgical History H/O colonoscopy S/P tendon repair History of colon resection Family History Father Colon cancer Social History Housing: House Are you a primary manager career to a significant other at home: No Do you presently have visiting nurse or other home services: No Alcohol intake: current Alcohol intake frequency: a few times a month Patient Tobacco Use Status: Never used Tobacco e-Cigarette/Vaping Use: Never Used Second Hand Smoke Exposure: No service: No Current occupational status: employed Current occupation: [employer] Current occupational exposures/hazards: Yes Cognitive needs: No Hearing needs: No Vision needs: No Review of Systems Const Denies chills and Denies fever(s) Eyes Denies blurry vision ENT Denies vertigo, Denies dizziness and Denies sore throat Card Denies chest pain at rest, Denies chest pain with activity, Denies diaphoresis and Reports dyspnea (intermittent) Resp Denies cough and Reports dyspnea (intermittent) GI Denies abdominal pain Musc Denies numbness and Denies tingling Skin/Breast Denies lesions Neuro Denies vertigo, Denies dizziness, Denies numbness and Denies tingling Physical Exam Vital Signs: Last Vital Signs Pulse 63 01/01/25 15:01 BP 138/80 01/01/25 15:01 Pulse Ox 95 01/01/25 15:01 Oxygen Delivery Method Room Air 01/01/25 15:01 BMI result Body Mass Index 30.5 Const General: cooperative Orientation/consciousness: patient oriented x3 HEENT Head: Yes normal to inspection, Yes normocephalic and Yes atraumatic General nose exam: Abnormal mucous membranes and turbinates present erythematous Eyes General: appearance normal, both eyes and all related structures Neck Neck: Yes normal visual inspection and Yes no lymphadenopathy Resp Effort & Inspection: normal respiratory effort Auscultation: wheezes and diminished lung sounds Cardio Rate: regular rate Rhythm: regular rhythm Heart sounds: S1 normal heart sound present and S2 normal heart sound present GI Palpation (GI): Soft to palpation and nontender Auscultation: normal bowel sounds Skin General skin exam: no rashes or lesions noted Neuro General: patient oriented x3 Assessment & Plan Assessment & Plan (1) Asthma: Comment: Eosinophilic asthma Code(s): J45.909 - Unspecified asthma, uncomplicated Category: Medical Qualifiers: Asthma severity: moderate Asthma persistence: persistent Asthma complication type: uncomplicated Qualified Code(s): J45.40 - Moderate persistent asthma, uncomplicated (2) Chronic allergic rhinitis: Code(s): J30.9 - Allergic rhinitis, unspecified Category: Medical (3) Sarcoidosis: Code(s): D86.9 - Sarcoidosis, unspecified Category: Medical (4) VALENTINE (obstructive sleep apnea): Comment: Severe degree of sleep apnea. The AHI was 55/hr and oxygen winnie was 82% Code(s): G47.33 - Obstructive sleep apnea (adult) (pediatric) Category: Medical Plan continue nasonex add Astelin nasal spray Stop Airduo Start Trelegy Need to review PAP therapy during the next visti Medications: New azelastine administer into each nostril 2 sprays intranasal BID 30 mL 6RF 30 days [id number] 200-62.5-25 mcg (Trelegy Ellipta) 1 inh inhalation DAILY 60 ea 12RF 30 days Coding Level of Care Code New Pt Level 4 (91692) Diagnoses Moderate persistent asthma without complication J45.40 Asthma severity: moderate Asthma persistence: persistent Asthma complication type: uncomplicated Chronic allergic rhinitis J30.9 Sarcoidosis D86.9 VALENTINE (obstructive sleep apnea) G47.33 Time Spent (min) 40
[2025-01-01 15:01] VITALS: BP 138/80; PULSE 63; O2SAT 95; BMI 30.5
== END 2025-01-01 15:37 | disposition home or self-care (01) ==
LOC: HO.HPS 14:42
PROVIDERS: PCP Nurse Practitioner Family; Referring Provider Nurse Practitioner Family; Visit Provider Hospitalist
DX: J45.40 Moderate persistent asthma, uncomplicated (principal); J30.9 Allergic rhinitis, unspecified; D86.9 Sarcoidosis, unspecified; G47.33 Obstructive sleep apnea (adult) (pediatric)
CPT/HCPCS: 99204